=== PATIENT | male | born 1965 | race Hispanic/Latino ===

== ENCOUNTER 2019-12-01 02:59 | Inpatient (IN) | payer SELFPAY ==
[2019-12-01] MEDS ORDERED: Pantoprazole 40 MG VIAL ONE (03:13)
[2019-12-01] MEDS ORDERED: Tranexamic Acid 1,000 MG/10 ML VIAL ONE (03:24)
[2019-12-01] MEDS ORDERED: Midazolam HCl 5 mg/ml Vial ONE (03:26)
[2019-12-01 03:39] LABS: Actual Bicarbonate (HCO3a) 20.3 mEq/L (22-28); Analyzer IN Cardio ER; Base Excess (BEa) -7.9 mEq/L (-2.0 to +3.0); CO2 Tension 56.2 mmHg (35.0-45.0); Calcium, Ionized 0.94 mmol/L (1.12-1.30); Carboxyhemoglobin (COHb) 0.3 gm% (0.0-3.0); Hemoglobin (Hb) 8.3 g/dL (14.0-18.0); O2 Tension (PaO2) 84.3 mmHg (80.0-100.0); Potassium - ABG Lab 3.88 mmol/L (3.70-5.30)
[2019-12-01 03:40] LABS: Puncture Site LBA; pH, Arterial 7.18 (7.35-7.45)
[2019-12-01 03:57] LABS: Band 3 % (5-11); Hemoglobin 7.9 g/dL (14.0-18.0); Lymphocytes 4 % (21-51); MDiff Complete? YES; Mean Corpuscular HGB CONC 32.9 g/dL (32.0-36.0); Mean Corpuscular Hemoglobin 30.2 pg (27.0-31.0); Mean Corpuscular Volume 91.8 fL (78.0-98.0); Mean Platelet Volume 7.1 fL (7.4-10.4); Monocytes 2 % (0-10); Neutrophil 91 % (42-75); Platelet Count 280 thou/uL (130-400); Platelet Morphology Comment Appears Adequate; RBC Distribution Width 15.9 % (11.5-14.5); White Blood Cell (WBC) Count 19.8 thou/uL (4.8-10.8)
[2019-12-01] MEDS ORDERED: cefTRIAXone\\ROCEPHIN 1 GM VIAL ONE (04:00)
[2019-12-01] MEDS ORDERED: Tranexamic Acid 1,000 MG in Sodium Chloride 0.9% 250 ML 250 ML IVPB SCH (04:00)
--- NOTE | 2019-12-01 04:09 | PDOC.FPRHP ---
- History of Present Illness Chief Complaint: ROSC History of Present Illness: This is a 54 yo with a pmh of HTN and heavy alcohol abuse who was at home yesterday evening when he called EMS for HTN. EMS arrived and found his BP to be elevated in addition, he became combative at that time and received ketamine to calm him down. Following this event, he developed respiratory arrest requiring a JACE airway. At this time blood was seen coming from the airway and EMS was unable to oxygenate appropriately. Pt was brought to [facility] where he was intubated. In addition, pt developed cardiac arrest with PEA requiring multiple rounds of Epi and CPR before obtaining ROSC. At this time pt was diagnosed with a GI bleed given Hgb of 7.0 that dropped to 5.5 an hour later. He also received 5L of NS. A VBG was obtained at the outside ER x2 showing mixed metabolic and respiratory acidosis. He was shipped to our ER, intubated. Here, his vital signs remained questionable with a widened pulse pressure and tachycardia. He received an additional unit of blood. Prior to that unit, he had a Hgb of 7.9 Pt received TXA, lactulose, protonix, a unit of blood (for a total of 2u), and rocephin at this facility. He was also found to have a coagulopathy of 2.6, supporting the possibility of alcoholic cirrhosis. I discussed this pt with his next of kin, his brother. His brother states that he called EMS due to his elevate BP. In addition, his brother states that he would want everything done to keep him alive. ED Course: Outside ER: 5L NS 1 unit of blood Ketamine Rocuronium [facility] ER: 1 unit of blood protonix 40 mg TXA 1 g Rocephin 1g Fentanyl 1mcg/kg/hr - Allergies/Adverse Reactions Allergies Allergy/AdvReac Type Severity Reaction Status Date / Time No Allergy Information Allergy Unverified 12/01/19 03:29 Available - History PMHx: HTN, Heavy alcohol abuse PSHx: Unknown FHx: Unknown Social: History of heavy drinking, quit a few months ago - Review of Systems ROS unobtainable: due to endotracheal tube Gastrointestinal: reports: GI bleeding, other - Vital signs BP: 161/92 HR: 109 RR: 20 Tmax: 94.8 Pox: 96% on 70% FIO2 Wt: 100 kg - Physical Exam Constitutional: other (Intubated and sedated) HEENT: PERRLA, conjunctiva clear, MMM, other (Blood on face, swollen eyelids but no obvious bruising) Neck: trachea midline, no JVD Heart: normal S1/S2, no murmurs/rubs/gallops, pulses present (bounding), no edema, other (tachy but regular) Lungs: other (rhonchi diffusely and bilaterally) Abdomen: soft, bowel sounds present, no masses/distention Musculoskeletal: normal structure Neurological: other (unable to assess) Skin: no rash/lesions, capillary refill <2 seconds, no jaundice Heme/Lymphatic: no unusual bruising or bleeding FMR H&P: Results - Labs Result Diagrams: 12/01/19 03:20 Lab results: WBC 19.8 thou/uL (4.8-10.8) H 12/01/19 03:20 Hgb 7.9 g/dL (14.0-18.0) L 12/01/19 03:20 Hct 23.9 % (42.0-52.0) L 12/01/19 03:20 MCV 91.8 fL (78.0-98.0) 12/01/19 03:20 Plt Count 280 thou/uL (130-400) 12/01/19 03:20 Band Neuts % (Manual) 3 % (5-11) L 12/01/19 03:20 ABG pH 7.18 (7.35-7.45) L* 12/01/19 03:21 ABG pCO2 56.2 mmHg (35.0-45.0) H 12/01/19 03:21 ABG pO2 84.3 mmHg (80.0-100.0) 12/01/19 03:21 Lactic Acid 3.6 mmol/L (0.5-2.2) H 12/01/19 03:20 Ammonia 159 umol/L (18-72) H 12/01/19 03:20 - EKG Interpretation EKG: Sinus tachycardia - Radiology Interpretation Chest x-ray Status: image reviewed by me (Humoral head replacement on the right, NG/ET tubes in place. Clear costophrenic borders, diffuse opacities) CT scan - head Status: image reviewed by me (No acute intracranial bleed or mass effect) FMR H&P: A/P - Problem List (1) PEA (Pulseless electrical activity) Current Visit: Yes Status: Acute Code(s): I46.9 - CARDIAC ARREST, CAUSE UNSPECIFIED (2) Signs of return of spontaneous circulation Current Visit: Yes Status: Acute Code(s): HOY0984 - (3) Upper GI bleed Current Visit: Yes Status: Acute Code(s): K92.2 - GASTROINTESTINAL HEMORRHAGE, UNSPECIFIED (4) Metabolic acidosis with respiratory acidosis Current Visit: Yes Status: Acute Code(s): E87.4 - MIXED DISORDER OF ACID- BASE BALANCE (5) Increased ammonia level Current Visit: Yes Status: Acute Code(s): R79.89 - OTHER SPECIFIED ABNORMAL FINDINGS OF BLOOD CHEMISTRY - Plan This is a 54 yo male with a pmh of HTN and heavy alcohol abuse Acute hypoxic respiratory failure -Admit to ICU -Ventilator support -S/P rocephin 1g, starting Unasyn due to aspiration concerns PEA with ROSC -Currently Sinus tachycardia Upper GI bleed with concern for variceal bleeding given alcohol abuse -Hgb 7.0-->5.5-->7.9 (after one unit of blood at [facility]) -Transfusing a second unit of blood at this time -Pt is on protonix BID -S/p TXA -Dr. Tapia plans to evaluate pt in the morning -Strict I&Os Acute blood loss anemia -As above, q6hr H/H Respiratory acidosis with metabolic acidosis -Treating anemia as well as ventilator adjustments to compensate Elevated ammonia level -159, s/p lactulose Coagulopathy -INR 2.6, S/P TXA, will monitor for further/worsening bleeding Presumptive cirrhosis -GI consult -Pending RUQ US and hepatitis labs Lactic acidosis -4.1->3.6 Transaminitis -Shock liver vs Cirrhosis -Pending RUQ US and Hepatitis labs HTN -Unknown if he takes any medications at this time Hx of heavy alcohol abuse -Alcohol level on admission was negative, family reports he stopped months ago Code: Full Prophylaxis: SCDs, Protonix Family: Called Brother and nephew to discuss condition and confirm code status Fluids: LR 50ml/hr Drips: Fentanyl Diet: NPO Disposition: DC in 4-5 days PCP: [facility] Addendum - Attending - Attending Attestation Date/Time: 12/01/19 7713 I personally evaluated the patient and discussed the management with Dr. Montes in the ER at time of admission. I agree with the History, Examination, Assessment and Plan documented above with any addition or exceptions noted below.
[2019-12-01] MEDS ORDERED: fentaNYL Citrate/PF 2,000 MCG in Sodium Chloride 0.9% 60 ML IV SCH (04:30)
[2019-12-01] MEDS ORDERED: Ondansetron PF 4 MG/2 ML Vial IVP PRN (05:33)
[2019-12-01] MEDS ORDERED: Ventilator Sedation Protocol 1 EACH FS ONE (05:33)
[2019-12-01] MEDS ORDERED: DISCONTINUE PREVIOUS NARCOTIC PAIN MEDICATIONS AND BENZODIAZEPINES FS SCH (05:41)
[2019-12-01] MEDS ORDERED: Propofol BOLUS 1,000 MG/100 ML VIAL IV PRN (05:41)
[2019-12-01] MEDS ORDERED: Morphine 2 MG/ML SYRINGE SLOW IVP PRN (05:41)
[2019-12-01] MEDS ORDERED: Fentanyl BOLUS 250 ML IVPB PRN (05:41)
[2019-12-01] MEDS ORDERED: Acetaminophen 650 MG Suppository PR SCH (06:00)
[2019-12-01] MEDS ORDERED: Ampicillin/Sulbactam 1.5 GM in Sodium Chloride 0.9% 100 ML IVPB SCH (06:00)
[2019-12-01 06:10] LABS: HBSAB Concentration 0.97 mIU/mL; HBSAg Index 0.27 S/CO (0-0.99); Hep B Surf AB Non-Reactive (NonReactive); Hep B Surf Ag Non-Reactive S/CO (NonReactive); Hep C IgG Ab Non-Reactive (NonReactive); Hep C Index 0.13 S/CO (0-0.79)
[2019-12-01 06:22] LABS: Actual Bicarbonate (HCO3a) 20.7 mEq/L (22-28); Base Excess (BEa) -2.8 mEq/L (-2.0 to +3.0); CO2 Tension 30.3 mmHg (35.0-45.0); Calcium, Ionized 0.96 mmol/L (1.12-1.30); Carboxyhemoglobin (COHb) 1.3 gm% (0.0-3.0); Hemoglobin (Hb) 7.6 g/dL (14.0-18.0); O2 Tension (PaO2) 129.4 mmHg (80.0-100.0); Potassium - ABG Lab 4.33 mmol/L (3.70-5.30); pH, Arterial 7.45 (7.35-7.45)
[2019-12-01 06:28] LABS: Lactic Acid 3.3 mmol/L (0.5-2.2)
[2019-12-01] MEDS ORDERED: Acetaminophen 650 MG Suppository PR PRN (06:33)
[2019-12-01 06:38] LABS: ALV-art Gradient 260.525 (0-20); Puncture Site RBRACH
--- NOTE | 2019-12-01 06:38 | PDOC.FM ---
- Objective Vital Signs & Weight: Vital Signs (12 hours) Temp Pulse Resp BP 12/01/19 05:33 24 H 12/01/19 05:30 99.0 F 12/01/19 05:29 110 H 166/108 H Weight Weight 76.1 kg Most Recent Monitor Data Heart Rate from ECG 111 NIBP 119/80 NIBP BP-Mean 93 Respiration from ECG 28 SpO2 100 I&O: 11/29/19 11/30/19 12/01/19 06:59 06:59 06:59 Output Total 350 Balance -350 Result Diagrams: 12/01/19 03:20 Dx/Plan (1) Increased ammonia level Code(s): R79.89 - OTHER SPECIFIED ABNORMAL FINDINGS OF BLOOD CHEMISTRY Status : Acute (2) Metabolic acidosis with respiratory acidosis Code(s): E87.4 - MIXED DISORDER OF ACID-BASE BALANCE Status: Acute (3) PEA (Pulseless electrical activity) Code(s): I46.9 - CARDIAC ARREST, CAUSE UNSPECIFIED Status: Acute (4) Signs of return of spontaneous circulation Code(s): XFA2972 - Status: Acute (5) Upper GI bleed Code(s): K92.2 - GASTROINTESTINAL HEMORRHAGE, UNSPECIFIED Status: Acute - Plan Plan: Acute hypoxic respiratory failure -Ventilator support, sedation protocol -Unasyn started for aspiration pna, consider DC - CXR appears fluid overloaded, A-a gradient increased - monitor, potentially consider diuresis if difficult wean PEA with ROSC -Currently Sinus tachycardia Upper GI bleed with concern for variceal bleeding given alcohol abuse -Hgb 7.0-->5.5-->7.9 (after one unit of blood at [facility]) -Transfusing a second unit of blood at this time -Pt is on protonix BID -S/p TXA -Dr. Tapia plans to evaluate pt in the morning -Strict I&Os Acute blood loss anemia -As above, q6hr H/H Respiratory acidosis with metabolic acidosis -Treating anemia as well as ventilator adjustments to compensate Elevated ammonia level -159, s/p lactulose Coagulopathy -INR 2.6, S/P TXA, will monitor for further/worsening bleeding Presumptive cirrhosis -GI consult -Pending RUQ US and hepatitis labs Lactic acidosis -4.1->3.6 Transaminitis -Shock liver vs Cirrhosis -Pending RUQ US and Hepatitis labs HTN -Unknown if he takes any medications at this time Hx of heavy alcohol abuse -Alcohol level on admission was negative, family reports he stopped months ago Code: Full Prophylaxis: SCDs, Protonix Family: Called Brother and nephew to discuss condition and confirm code status Fluids: LR 50ml/hr Drips: Fentanyl Diet: NPO Disposition: DC in 4-5 days PCP: [facility]
[2019-12-01] MEDS: Lactated Ringer's 1,000 ML IV SCH (06:50)
[2019-12-01] MEDS: Propofol 1,000 MG/100 ML VIAL IV PRN ×2 (07:12→16:10)
--- NOTE | 2019-12-01 07:26 | CT ---
PRELIMINARY REPORT/[facility]/EMERGENCY AFTER HOURS PROCEDURE: PROCEDURE: CT Head without Contrast . HISTORY: Altered mental status. TECHNIQUE: Axial images were performed without the administration of IV contrast with or without mult iplanar reformations . COMPARISON: None . FINDINGS: Brain shows no mass, hemorrhage, or acute stroke. Ventricles are normal size for patient's age. Persistent cavum septum pellucida and cavum vergae. Hector-cisterna magna. No acute skull or scalp abnormality. Scattered mild to moderate inflammatory mucosal changes paranasal sinuses. Clear mastoids. NG and endotracheal tube in place. IMPRESSION: No significant abnormality involving the brain. ELECTRONICALLY SIGNED BY: Carter Ahumada MD Dec 01, 2019 4:10:06 AM CDT This report is intended for review by the ordering physician only, in accordance of law. If you recei ve this report in error, please call [facility] at [phone]. FINAL REPORT EMERGENCY AFTER HOURS CT BRAIN WITHOUT CONTRAST: FINDINGS/IMPRESSION: I agree with the findings and impression given in the preliminary report per [facility] physici an. No evidence of acute intracranial abnormality.
--- NOTE | 2019-12-01 08:10 | ULT ---
Exam: Right upper quadrant ultrasound: HISTORY: Cirrhosis COMPARISON: None FINDINGS: Liver: Heterogeneous in appearance. There is an echogenic peripherally located mass in the right hepa tic lobe measuring 3.9 cm in maximal dimensions. This is in a subcapsular location and results in contour abnormality of the liver in this region. A questionable additional echogenic masslike lesion is present, but the borders are difficult to delineate. Findings are worrisome for neoplastic process. Nodular peripheral contour is seen suggesting cirrhosis. Flow within the main portal vein is not able to be visualized. Hepatic arterial Doppler evaluation does demonstrate arterial flow within the hepatic artery. CT scan of the the abdomen is recommended for further evaluation of the he patic lesion and for further evaluation of the portal vein. Gallbladder: Markedly contracted and difficult to evaluate. There is a shadowing echogenic focus in t he region of the gallbladder suggesting gallbladder calculus. Common bile duct: Not visualized. Pancreas: Completely obscured by shadowing from bowel gas. Right kidney: Right kidney demonstrates a normal sonographic appearance. The right kidney measures 1 3.9 cm in length. IVC: The visualized IVC demonstrates a normal sonographic appearance. Small amount of free fluid is seen in the right upper quadrant adjacent to the liver. IMPRESSION: 1. Cirrhotic morphology of the liver with heterogeneity of the hepatic parenchyma. A circumscribed pe ripherally located mass in the right hepatic lobe is seen within additional ill-defined area of heterogeneity which has a masslike appearance, but the margins are difficult to adequately evaluate. Findings are worrisome for neoplastic process. Correlation with alpha-fetoprotein is recommended. CT scan of the abdomen is also recommended. 2. Main portal vein is unable to be detected on this examination. This can also be evaluated on CT ev aluation. 3. Gallbladder is completely contracted with small gallbladder calculus present. Common duct is not v isualized. 4. Small amount of ascites in the right upper quadrant.
[2019-12-01] MEDS: Pantoprazole 40 MG VIAL IVP SCH ×2 (09:19→20:08)
[2019-12-01] MEDS: Sodium Chloride 0.9% (PF) 10 ML VIAL FS PRN (09:19)
--- NOTE | 2019-12-01 09:26 | CON ---
DATE OF CONSULTATION: HISTORY OF PRESENT ILLNESS: Len Sebastian is a 54-year-old gentleman, who is intubated in the vent, sedated, Diprivan and fentanyl. He came from [facility], presented with GI bleed. He was agitated. He was given some ketamine as per the history that I got. He had a cardiac arrest. CPR was initiated. He was intubated and transferred over here. He received 5 L IV fluids, packed cells prior to arrival. No family members are here. He was recently admitted to [facility] in [place]. We will try to get additional information from there. He had a CT done of his brain on arrival, which is negative. PAST MEDICAL HISTORY: As per previous information, pertinent for alcoholic-associated liver disease. No other history obtained at this time. Unknown surgeries. Unknown medication. We are in the process of trying to get information from a different hospital. PHYSICAL EXAMINATION: GENERAL: He is jaundiced. HEENT: Pupils are equal. VITAL SIGNS: Pulse 109, blood pressure 101/68, sats 98%, respirations 18, afebrile. CHEST: Decreased breath sounds. No wheezing. CARDIAC: Normal S1 and S2. No gallops. ABDOMEN: Distended. LABORATORY DATA: His pO2 is 129, pCO2 of 30, pH 7.45, 60%, 450, PEEP of 5. Hemoglobin and hematocrit are now 7 and 23, platelet count is 280. Renal function is normal. AST is 176, ALT 72. ASSESSMENT: Status post cardiopulmonary arrest, alcohol abuse, cirrhosis, hypertension, and encephalopathy. PLAN: Continue supportive care. Input from GI. Agree with present treatment. He is on empiric antibiotics, continue. X-ray is clear. Wean when everything is stable. 45-minute critical time. Job ID: [id number]
[2019-12-01] MEDS ORDERED: Sodium Chloride 0.9% 250 ML 250 ML IVPB SCH (10:30)
[2019-12-01] MEDS: cefTRIAXone\\ROCEPHIN 1 GM in Sodium Chloride 0.9% 100 ML IVPB SCH (10:36)
[2019-12-01 11:04] LABS: Hemoglobin 8.1 g/dL (14.0-18.0); Platelet Count 187 thou/uL (130-400)
[2019-12-01] MEDS: Octreotide Acetate 1,250 MCG in Sodium Chloride 0.9% 250 ML 250 ML IVPB SCH (11:09)
[2019-12-01 11:10] LABS: INR-International Normal Ratio 1.8; PTT 37.6 SEC (22.9-36.1); Prothrombin Time 20.6 SEC (12.0-14.7)
[2019-12-01] MEDS ORDERED: EPINEPHRINE 1 MG/10 ML-NACL IV ONE (11:18)
[2019-12-01] MEDS: Multivitamins, Adult 10 ML, Folic Acid 1 MG, Thiamine HCl 100 MG in Dextrose 5 %-0.45 %... IV SCH (11:21)
[2019-12-01 11:23] LABS: ALT (SGPT) 84 U/L (8-55); AST (SGOT) 199 U/L (5-34); Albumin 2.3 g/dL (3.5-5.0); Alkaline Phosphatase 125 U/L (40-110); Anion Gap 12 mmol/L (10-20); BUN (Urea Nitrogen) 32 mg/dL (8.4-25.7); Bilirubin, Total 1.4 mg/dL (0.2-1.2); Calc. Creatinine Clearance 77 mL/min (70-130); Calcium 6.5 mg/dL (7.8-10.44); Carbon Dioxide 20 mmol/L (22-29); Chloride 113 mmol/L (98-107); Estimated GFR-MDRD 65; Globulin 2.9 g/dL (2.4-3.5); Glucose 110 mg/dL (70-105); Lipase 50 U/L (8-78); Potassium 4.1 mmol/L (3.5-5.1); Protein, Total 5.2 g/dL (6.0-8.3); Sodium 141 mmol/L (136-145)
--- NOTE | 2019-12-01 14:54 | OP ---
DATE OF PROCEDURE: 12/01/2019 PREPROCEDURE DIAGNOSES: 1. Gastrointestinal hemorrhage. 2. Cirrhosis. 3. Questionable history of traumatic intubation, possible esophageal intubation in the field. POSTPROCEDURE DIAGNOSES: 1. Esophageal varices grade 3, three columns, lower esophagus with red aly signs with no stigmata of recent or active bleeding, banded x4. 2. Mild portal gastropathy. No evidence of ulcers or erosions. Retroflexed views showed no evidence of gastric varices. 3. Normal duodenum in the third portion. 4. No active bleeding at this EGD. RECOMMENDATIONS: 1. Stop triaminic acid. 2. Continue octreotide drip. 3. Continue Protonix. 4. Continue banana bag. 5. Continue empiric antibiotics. 6. Transfuse to keep hemoglobin greater than 7, would not transfuse if hemoglobin is over 7 unless he is actively bleeding. 7. Start Xifaxan 550 p.o. b.i.d. via the NG tube. Start lactulose twice a day via the NG tube. 8. Clamp the NG tube. I do not want that to be sucking on his stomach at this time unless he becomes overly distended. No tube feeds at this time. We will follow with you. ANESTHESIA: The patient is intubated in the ICU. He is given a bolus of propofol 20 mcg at a time, four times. The pressure remained stable through the procedure. DESCRIPTION OF PROCEDURE: The patient's family was informed of the risks, benefits, and possible complications of endoscopy including perforation, reaction to medication, and aspiration. Informed consent was obtained. The patient was brought to the endoscopy suite where he was sedated as noted as he was already intubated in the ICU and a bite block was placed inside his orifice. The endoscope was carefully advanced through the bite block into the esophagus, stomach, and second and third portions of duodenum. There was no active bleeding noted. There was no blood noted. I did not see any definitive trauma in the oropharynx. The esophagus showed grade 3 varices, three columns. These were banded x4. After the remainder of the esophagus was evaluated, there was red aly signs, but no active bleeding or thrombin clot seen. The stomach appeared to show portal hypertensive gastropathy with no evidence of gastric varices. Forward and retroflexed views of the duodenum was without ulcers or lesions. Before the banding took place, I went ahead and placed the NG tube back into the stomach. So we had a way to give him lactulose and Xifaxan and we banded with that in place. The scope was removed. The patient tolerated the procedure well. There were no complications. Job ID: [id number]
[2019-12-01 18:22] LABS: Hemoglobin 8.1 g/dL (14.0-18.0)
[2019-12-01] MEDS: Lorazepam 2 MG/ML VIAL SLOW IVP PRN (18:23)
[2019-12-01] MEDS: Rifaximin 550 MG TAB PER TUBE SCH (20:08)
[2019-12-02 00:15] LABS: Hemoglobin 8.4 g/dL (14.0-18.0)
[2019-12-02] MEDS: Lactated Ringer's 1,000 ML IV SCH ×2 (03:10→22:00)
[2019-12-02] MEDS: Propofol 1,000 MG/100 ML VIAL IV PRN ×2 (04:03→16:09)
[2019-12-02 04:31] LABS: #Basophils 0.1 thou/uL (0.0-0.2); #Eosinphils 0.3 thou/uL (0.0-0.7); #Lymphocytes 2.2 thou/uL (1.20-3.40); #Monocytes 0.9 thou/uL (0.11-0.59); #Neutrophils 8.7 thou/uL (1.40-6.50); %Basophils 0.6 % (0.0-1.0); %Eosinophils 2.1 % (0.0-10.0); %Lymphocytes 18.1 % (21.0-51.0); %Monocytes 7.5 % (0.0-10.0); %Neutrophils 71.7 % (42.0-75.0); Hemoglobin 8.3 g/dL (14.0-18.0); Mean Corpuscular HGB CONC 33.5 g/dL (32.0-36.0); Mean Corpuscular Hemoglobin 29.9 pg (27.0-31.0); Mean Corpuscular Volume 89.4 fL (78.0-98.0); Mean Platelet Volume 7.3 fL (7.4-10.4); Platelet Count 187 thou/uL (130-400); RBC Distribution Width 16.7 % (11.5-14.5); Red Blood Cell (RBC) Count 2.77 mill/uL (4.70-6.10); White Blood Cell (WBC) Count 12.2 thou/uL (4.8-10.8)
[2019-12-02 05:01] LABS: ALT (SGPT) 108 U/L (8-55); AST (SGOT) 223 U/L (5-34); Albumin 2.4 g/dL (3.5-5.0); Alkaline Phosphatase 137 U/L (40-110); Anion Gap 11 mmol/L (10-20); BUN (Urea Nitrogen) 38 mg/dL (8.4-25.7); Bilirubin, Total 1.4 mg/dL (0.2-1.2); Calc. Creatinine Clearance 68 mL/min (70-130); Calcium 7.1 mg/dL (7.8-10.44); Carbon Dioxide 20 mmol/L (22-29); Chloride 112 mmol/L (98-107); Estimated GFR-MDRD 54; Globulin 3.1 g/dL (2.4-3.5); Glucose 106 mg/dL (70-105); Magnesium 1.5 mg/dL (1.6-2.6); Phosphorus 3.2 mg/dL (2.3-4.7); Potassium 3.9 mmol/L (3.5-5.1); Protein, Total 5.5 g/dL (6.0-8.3); Sodium 139 mmol/L (136-145)
--- NOTE | 2019-12-02 06:59 | PDOC.FM ---
- Subjective Subjective: pt intubated and sedated, no events overnight. egd yesterday with variceal banding - Objective Vital Signs & Weight: Vital Signs (12 hours) Temp Pulse Resp BP Pulse Ox 12/02/19 06:00 18 12/02/19 04:00 99.0 F 21 H 12/02/19 02:35 94 123/82 12/02/19 02:00 23 H 12/02/19 00:00 99.8 F H 21 H 12/01/19 23:51 94 12/01/19 22:00 21 H 12/01/19 20:00 99.2 F 23 H 97 Weight Admit Weight 75.75 kg Weight 78.4 kg Most Recent Monitor Data Heart Rate from ECG 96 NIBP 113/71 NIBP BP-Mean 85 Respiration from ECG 18 SpO2 98 I&O: 11/30/19 12/01/19 12/02/19 06:59 06:59 06:59 Intake Total 4.5 3213.6 Output Total 350 1071 Balance -345.5 2142.6 Result Diagrams: 12/02/19 04:15 12/02/19 04:15 Phys Exam - Physical Examination Constitutional: NAD HEENT: moist MMs Neck: no JVD Respiratory: clear to auscultation bilateral Cardiovascular: no significant murmur Gastrointestinal: soft Musculoskeletal: pulses present, edema present Psychiatric: normal affect Skin: no rash Dx/Plan (1) Increased ammonia level Code(s): R79.89 - OTHER SPECIFIED ABNORMAL FINDINGS OF BLOOD CHEMISTRY Status : Acute (2) Metabolic acidosis with respiratory acidosis Code(s): E87.4 - MIXED DISORDER OF ACID-BASE BALANCE Status: Acute (3) PEA (Pulseless electrical activity) Code(s): I46.9 - CARDIAC ARREST, CAUSE UNSPECIFIED Status: Acute (4) Signs of return of spontaneous circulation Code(s): OMG0208 - Status: Acute (5) Upper GI bleed Code(s): K92.2 - GASTROINTESTINAL HEMORRHAGE, UNSPECIFIED Status: Acute - Plan Plan: Acute hypoxic respiratory failure - intubated 11/30, continue sedation protocol, npo for GI bleed - maintenance fluids Upper GI bleed - s/p 1u of blood, EGD revealing varices, no visualized active bleeding - protonix, octreotide, ceftriaxone - hb/vss stable Acute blood loss anemia -As above Respiratory acidosis with metabolic acidosis, resolved Elevated ammonia level -lactulose TID Coagulopathy -INR 2.6, S/P TXA, will monitor for further/worsening bleeding Liver mass - concerning for malignancy - will need further imaging, MRI once extubated Presumptive cirrhosis - RUQ reveals cirrhosis and mass concerning for neoplastic process, elevated AFP - GI consulted, appreciate recs Transaminitis - see above HTN -monitor Hx of heavy alcohol abuse -monitor for withdrawal symptoms Disposition: monitor for further bleeding, continue work up Addendum - Attending - Attending Attestation Date/Time: 12/02/19 1007 I personally evaluated the patient and discussed the management with Dr. Law. I agree with the History, Examination, Assessment and Plan documented above with any addition or exceptions noted below. Patient continues on ventilator. H/H stable. Trend and transfuse as needed. Continue Protonix, Octreotide and Rocephin for SBP ppx. Has liver mass with highly elevated AFP, will need imaging once more stable given likelihood of malignancy.
[2019-12-02 07:25] LABS: Actual Bicarbonate (HCO3a) 21.1 mEq/L (22-28); Base Excess (BEa) -2.3 mEq/L (-2.0 to +3.0); CO2 Tension 30.5 mmHg (35.0-45.0); Calcium, Ionized 1.07 mmol/L (1.12-1.30); Carboxyhemoglobin (COHb) 0.8 gm% (0.0-3.0); Hemoglobin (Hb) 8.7 g/dL (14.0-18.0); O2 Tension (PaO2) 75.2 mmHg (80.0-100.0); Potassium - ABG Lab 3.74 mmol/L (3.70-5.30); pH, Arterial 7.46 (7.35-7.45)
[2019-12-02 07:26] LABS: Puncture Site RRA
[2019-12-02 07:27] LABS: ALV-art Gradient 171.875 (0-20)
[2019-12-02] MEDS: Rifaximin 550 MG TAB PER TUBE SCH ×2 (09:00→21:09)
[2019-12-02] MEDS: Pantoprazole 40 MG VIAL IVP SCH ×2 (09:01→21:09)
[2019-12-02] MEDS: Octreotide Acetate 1,250 MCG in Sodium Chloride 0.9% 250 ML 250 ML IVPB SCH (10:24)
[2019-12-02] MEDS: cefTRIAXone\\ROCEPHIN 1 GM in Sodium Chloride 0.9% 100 ML IVPB SCH (10:25)
[2019-12-02] MEDS: Multivitamins, Adult 10 ML, Folic Acid 1 MG, Thiamine HCl 100 MG in Dextrose 5 %-0.45 %... IV SCH (12:07)
--- NOTE | 2019-12-02 12:16 | CON ---
DATE OF CONSULTATION: REQUESTING PHYSICIAN: Dr. Cameron Lopez. HISTORY OF PRESENT ILLNESS: Mr. Sebastian is a 54-year-old gentleman, who was transferred here last night with upper GI hemorrhage. Apparently, he had come from [facility], where he presented with hematemesis and hemoglobin around 5, and at one time point in time, he became so hypotensive. He was started on CPR for PEA. He apparently received 4 L of saline resuscitation unit of blood. He was found to have melena on exam and about 250 mL of bright red blood with placement of NG tube. He was intubated for airway protection and transferred to our hospital. Apparently, he has history of alcohol abuse, but the nurses report, the family states he stopped drinking a few months ago. There is not much otherwise known historically when he came in. Apparently review of the residents notes, that when the initial call for EMS went out for hypertension, he was found by EMS to be confused and combative, he was given ketamine and he developed a respiratory arrest, that was when he was found to have blood coming from the airways and they were unable to oxygenate him, so he was brought to [facility], where was re-intubated. At that time, he developed a cardiac arrest. He had multiple rounds of epi, CPR. It is unclear how much CPR he had. Initial hemoglobin was 7 that dropped to 5.5. It is unclear if that occurred before or after the 5 L of resuscitation with saline. Here, he has had no further signs of bleeding. He had melena on rectal exam. He had a hemoglobin of 7.9 in the emergency room here and he was given tranexamic acid and then started on a drip. It seems now he has had 2 units of blood in total. His last hemoglobin was 7.9 before the last unit was given. In the emergency room, he also received lactulose. INR 2.6. Platelet count was normal. The family practice residents talked with the family and they wanted to keep him as a full code. It is unclear how much blood he has received in blood bank, reports 1 unit has been issued here. It seems that, that unit just finished. The admission note from the resident's notes, he received a unit in our ER and a unit in [facility]. ALLERGIES: UNKNOWN. PAST MEDICAL HISTORY: Hypertension, heavy alcohol abuse. PAST SURGICAL HISTORY: Unknown. FAMILY HISTORY: Unknown. SOCIAL HISTORY: Heavy drinking in the past. REVIEW OF SYSTEMS: Unable to endotracheal tube present. PHYSICAL EXAMINATION: VITAL SIGNS: Pulse 106, blood pressure 119/73, respiration 18. GENERAL: He is intubated. He does move non-purposefully all extremities. HEENT: Nonicteric. Oropharynx is notable for ET tube in place. NECK: Supple. LUNGS: Clear. HEART: Regular rate and rhythm without clicks or murmurs. ABDOMEN: Protuberant, but questionable for shifting dullness or fluid wave. There is no evidence of hepatosplenomegaly. EXTREMITIES: Reveal no clubbing, cyanosis, or edema. SKIN: Notable for spider angioma on the chest. LABORATORY DATA: Midnight last night, he had a sodium of 137, potassium 4.3, BUN and creatinine of 27 and 0.74, glucose 121, calcium 7.2, bilirubin 1.1, AST 176, ALT 72, alkaline phosphatase 134. Ammonia is 159 at 3 a.m. Albumin is 2.8, protein was 6.1. Lactic acid was 4.1 at midnight last night, 3.6 at 3 a.m. BNP was 53. Tox screen was negative for alcohol, acetaminophen, and salicylates. Urine drug screen was not obtained. Blood gas this morning, pH 7.45, CO2 of 30, O2 of 129. INR is 2.7 at 1 a.m. White count was 12,000 at midnight, it is 19,000 presently was 7.9 at 3 a.m. Platelet count was 280. Hepatitis A, B, and C serologies on 12/01/2019 were negative. IMAGING: Abdominal ultrasound, cirrhosis, there was a mass in the liver concerning for a neoplastic process. Further imaging will need to be obtained per Radiology. Main portal vein is not able to be detected. Gallbladder is contracted. Small amount of ascites in right upper quadrant. ASSESSMENT: 1. Acute gastrointestinal hemorrhage. Very odd history in that he was being intubated for being disoriented and confused after being given sedatives by EMS and then blood came out of the ET tube, and apparently he had to be reintubated at [facility] and then he had some blood from an NG tube. It is unclear what his baseline hemoglobin was before, that is not available in the [facility] system. Apparently, he has been at [facility] in the past and we are trying to get some records from there presently. It is unclear if this bleeding was due to trauma from the intubation or if he had something going on before that. He is cirrhotic, but has a platelet count of over 200,000, so varices are less likely. He became very hypotensive at one point in time, went to PEA, but is now seemingly stable. Hemoglobin is pending and he is on the Protonix q.12. He has been started on octreotide drip and he is finishing a TXA drip started in the emergency room. Differential diagnosis includes variceal bleed, trauma from inadvertent esophageal intubation or history of ulcer disease or Anita-Fontana tear. He is intubated now and needs an endoscopy to stratify risk, medications and treat bleeding site if applicable as he almost with this episode. This is not a procedure that can be deferred and is an emergency. It will have impact on his management and possibly his life in the next 24 to 48 hours. 2. Cirrhosis, seemingly from alcohol abuse. He does not have hepatitis B or C. The family reports he stopped drinking in the past few months. However, his AST and ALT are still elevated alcoholic liver disease. Alcohol level was negative on admission. He has been appropriately started on antibiotics for GI bleed and cirrhotic. An ultrasound shows no significant ascites to be tapped. He has not been started on a banana bag, which needs to be done. 3. Questionable mass in the liver, on ultrasound. This will be evaluated further after he is resuscitated. IV contrast now is contraindicated. RECOMMENDATIONS: 1. Continue PPI q.12 hours. 2. Urgent endoscopy today while intubated in the ICU at bedside. 3. Continue antibiotics for GI bleed and cirrhotic. 4. Check alpha-fetoprotein. 5. CT scan with IV contrast in 2 to 3 days when he is more hemodynamically stable to evaluate the mass seen in the liver on ultrasound. 6. Banana bag daily. 7. There is not really any data on tranexamic acid for GI bleeding. There is currently an ongoing double-blind trial, which has not resulted. The previous studies that have been done there are some statistical studies that show possibly an improvement in risk of with massive GI hemorrhage, when urgent upper endoscopy and IV PPIs are used, the advantage of TXA is not shown, but I agree with the ER's initial use of this in light of his presentation. 8. We would keep two large-bore IVs at all time. 9. We would keep blood available. We will follow along with you. I have discussed this with the patient's nurse. The patient is intubated. His family who are here speak Armenian and this will be discussed with them with a livestock broker. Job ID: [id number]
--- NOTE | 2019-12-02 13:52 | PRG ---
DATE OF SERVICE: 12/02/2019 SUBJECTIVE: Mr. Sebastian remains intubated and he is receiving sedation with both propofol and fentanyl. He is on octreotide and has not had any further active bleeding. With a sedation holiday, the patient is somewhat more tachypneic and tachycardic and restless, but does not awaken to the point of following commands. PHYSICAL EXAMINATION: VITAL SIGNS: Blood pressure 116/68, heart rate 92, respirations 18, saturation 97% on ventilator with FiO2 of 40. He is assisting the ventilator. He does have a slight cough or diaphragmatic spasm associated with expiration on a fairly consistent basis. His NG tube is without active bleeding. NECK: Shows no adenopathy or JVD. LUNGS: Grossly clear. I do not hear any wheezing. HEART: Regular rate and rhythm. ABDOMEN: Soft. There is no organomegaly. I do not elicit hepatosplenomegaly. There is no guarding or rebound. There is no palpable mass. EXTREMITIES: There is no edema. LABORATORY DATA: White count of 12,200, hemoglobin is 8.3, platelet count 187, 000. Pro-time last evening was 20.6 seconds with INR of 1.8. It has not been repeated. Blood gas today includes pH 7.46, CO2 of 35, PO2 of 75, bicarbonate 21. Electrolytes include sodium 139, potassium 3.7, chloride 114, BUN 38, creatinine 1.37. Liver tests are elevated including AST of 223, ALT of 108, alkaline phosphatase of 137. His ammonia level was 159 on admission, it is now stable at about 80. AFP is over 10,000 IMPRESSION: 1. Altered mental status secondary to hepatic encephalopathy secondary to end- stage alcoholic liver disease with coagulopathy. 2. Gastrointestinal bleed, status post endoscopy with banding. His INR remains elevated at 1.8. 3. Respiratory failure secondary to altered mental status. He is not responding even with drug holiday at this time. 4. Liver mass with elevated AFP is highly suggestive of hepatocellular carcinoma PLAN: Continue ventilatory support. I have reduced his sedation by 50%. We will see if there is a gradual clearing over time. He remains on lactulose and supportive therapy regarding his encephalopathy. At this point, he is not a candidate for extubation. I have not seen any family today. His prognosis is extremely poor. Job ID: [id number] [facility]
--- NOTE | 2019-12-02 16:09 | PRG ---
DATE OF SERVICE: 12/02/2019 SUBJECTIVE: Mr. Sebastian has had no bleeding overnight. The nurses report even with taking sedation off, he is nonresponsive. OBJECTIVE: VITAL SIGNS: Pulse 104, blood pressure 139/95. In's and out's 3238 and 1071 mL. He has had 871 mL of urine output as of 7 this morning, 200 so far today. GASTROINTESTINAL: He has had no bowel movements yet per the nurse. GENERAL: He remains intubated. NECK: Supple. LUNGS: Clear. ABDOMEN: Protuberant, but nontender. There is no rebound. There is no guarding. HEENT: Nonicteric. EXTREMITIES: Trace edema. LABORATORY STUDIES: Sodium 139, potassium 3.9, BUN and creatinine 38 and 1.37, calcium 7.1, magnesium 1.5, bilirubin 1.4, AST 223, ALT 108, alkaline phosphatase 137, ammonia is 81. AFP was 10,148. Hepatitis A, B, and C serology on admission were negative. PH 7.46 today. INR is 1.8 yesterday. White count 12.2; hemoglobin 8.3, stable; platelet count 187. ASSESSMENT: 1. Cirrhosis, likely due to alcohol abuse. Negative hepatitis A, B, and C. 2. The patient had a cardiac arrest with pulseless electrical activity. It is unclear if this was related to sedation that was given or whether it was related to bleeding. There were some reports of hematemesis or blood in the NG tube after intubation, it was only about 200 mL. He had no overt bleeding at the time of endoscopy, but there was some varices with high-risk stigmata that were banded however. 3. Altered mental status. Some of this is hepatic encephalopathy, some of this may be related to sedation he has already received, and some of this may be related to some type of anoxic injury when he had CPR at the outside facility prior to that arrival. 4. AFP is 10,000. He does have hepatocellular carcinoma. This is diagnostic of it. I suspect the mass that is seen on the ultrasound is much bigger and is not fully visualized. 5. Respiratory failure. RECOMMENDATIONS: 1. Continue octreotide. 2. Continue lactulose and Xifaxan. 3. He is not presently a candidate for extubation. 4. He is not presently a candidate to get a CAT scan or MRI of his liver. 5. I have called the family today and talked with one family member who speaks [place]. He has a nephew who is 30 years old. I have outlined to him the multiple problems he faces, the course he has undergone, and issues regarding DNR status. I have recommended that the patient be made DNR status, but continue aggressive treatment at this time and see if we get him extubated and he is going to talk to the family about that and get back to me or the nurse later today. Overall, I spent 45 minutes in conversation with nurse, ICU physician, and family in addition to evaluation and management of above. Job ID: [id number]
[2019-12-03 00:56] LABS: Bacteria/HPF None Seen HPF (None Seen); Bilirubin Negative (Negative); Blood, Urine 1+ (Negative); Clarity Clear (Clear); Glucose, Urine (Dipstick) Normal (Negative); Leukocyte Negative Leu/uL (Negative); Nitrite Negative (Negative); Protein, Urine (Dipstick) Negative (Neg-Trace); Squamous Epithelial 0-3 HPF (0-3); Urine Culture Reflex No No; Urobilinogen Normal mg/dL (Less than 2); WBC/HPF 0-3 HPF (0-3)
[2019-12-03 01:42] LABS: Lactic Acid 1.7 mmol/L (0.5-2.2)
[2019-12-03] MEDS: Cefepime 2 GM in Sodium Chloride 0.9% 100 ML IVPB SCH ×2 (02:10→13:40)
[2019-12-03 04:47] LABS: #Basophils 0.1 thou/uL (0.0-0.2); #Eosinphils 0.1 thou/uL (0.0-0.7); #Lymphocytes 1.3 thou/uL (1.20-3.40); #Monocytes 0.9 thou/uL (0.11-0.59); #Neutrophils 9.1 thou/uL (1.40-6.50); %Basophils 0.7 % (0.0-1.0); %Eosinophils 0.9 % (0.0-10.0); %Lymphocytes 11.3 % (21.0-51.0); %Monocytes 8.2 % (0.0-10.0); Hemoglobin 8.9 g/dL (14.0-18.0); Mean Corpuscular HGB CONC 32.4 g/dL (32.0-36.0); Mean Corpuscular Hemoglobin 29.4 pg (27.0-31.0); Mean Corpuscular Volume 90.9 fL (78.0-98.0); Mean Platelet Volume 7.1 fL (7.4-10.4); Platelet Count 200 thou/uL (130-400); RBC Distribution Width 17.3 % (11.5-14.5); Red Blood Cell (RBC) Count 3.03 mill/uL (4.70-6.10); White Blood Cell (WBC) Count 11.6 thou/uL (4.8-10.8)
[2019-12-03 05:05] LABS: INR-International Normal Ratio 1.4; PTT 32.9 SEC (22.9-36.1)
[2019-12-03 05:10] LABS: ALT (SGPT) 121 U/L (8-55); AST (SGOT) 214 U/L (5-34); Albumin 2.6 g/dL (3.5-5.0); Alkaline Phosphatase 151 U/L (40-110); Anion Gap 12 mmol/L (10-20); BUN (Urea Nitrogen) 32 mg/dL (8.4-25.7); Calc. Creatinine Clearance 72 mL/min (70-130); Calcium 7.2 mg/dL (7.8-10.44); Carbon Dioxide 18 mmol/L (22-29); Chloride 114 mmol/L (98-107); Estimated GFR-MDRD 58; Globulin 3.2 g/dL (2.4-3.5); Glucose 113 mg/dL (70-105); Magnesium 1.6 mg/dL (1.6-2.6); Phosphorus 3.3 mg/dL (2.3-4.7); Potassium 3.9 mmol/L (3.5-5.1); Protein, Total 5.8 g/dL (6.0-8.3); Sodium 140 mmol/L (136-145)
[2019-12-03] MEDS: Propofol 1,000 MG/100 ML VIAL IV PRN ×2 (05:10→17:57)
--- NOTE | 2019-12-03 05:52 | PDOC.BPN ---
- Brief Progress Note Called about fever in patient to 101.2. Pt with risk factors of aspiration, currently on ventilator, and ascites. Pt was on rocephin for SBP ppx in setting of GI bleed. Ordered CXR that showed RLL infiltrate. Ordered blood cultures, procal, and lactic acid Adjusted abx to vanc and cefepime to cover anaerobes and MRSA.
--- NOTE | 2019-12-03 07:05 | PDOC.FM ---
- Subjective Subjective: pt intubated and sedated, non purposeful movements, over breathing vent - Objective Vital Signs & Weight: Vital Signs (12 hours) Temp Pulse Resp BP Pulse Ox 12/03/19 06:00 22 H 12/03/19 04:00 100.2 F H 23 H 12/03/19 02:21 107 H 162/102 H 12/03/19 02:00 19 12/03/19 00:00 101.2 F H 16 12/02/19 22:17 126 H 153/93 H 12/02/19 22:00 22 H 12/02/19 20:00 100.2 F H 23 H 98 Weight Admit Weight 75.75 kg Weight 80.5 kg Most Recent Monitor Data Heart Rate from ECG 101 NIBP 167/111 NIBP BP-Mean 129 Respiration from ECG 23 SpO2 100 I&O: 12/01/19 12/02/19 12/03/19 06:59 06:59 06:59 Intake Total 4.5 3238.5 3000.6 Output Total 350 1071 1390 Balance -345.5 2167.5 1610.6 Result Diagrams: 12/03/19 04:34 12/03/19 04:34 Phys Exam - Physical Examination Constitutional: NAD HEENT: moist MMs diffuse ronchi Cardiovascular: no significant murmur Gastrointestinal: soft Musculoskeletal: no edema Neurological: moves all 4 limbs Skin: no rash, normal turgor Dx/Plan (1) Increased ammonia level Code(s): R79.89 - OTHER SPECIFIED ABNORMAL FINDINGS OF BLOOD CHEMISTRY Status : Acute (2) Metabolic acidosis with respiratory acidosis Code(s): E87.4 - MIXED DISORDER OF ACID-BASE BALANCE Status: Acute (3) PEA (Pulseless electrical activity) Code(s): I46.9 - CARDIAC ARREST, CAUSE UNSPECIFIED Status: Acute (4) Signs of return of spontaneous circulation Code(s): OZU0551 - Status: Acute (5) Upper GI bleed Code(s): K92.2 - GASTROINTESTINAL HEMORRHAGE, UNSPECIFIED Status: Acute - Plan Plan: Acute hypoxic respiratory failure, concomitant aspiration pnuemonitis vs VAP - intubated 11/30, continue sedation protocol, npo for GI bleed - reported fever to 101.2 on 12/02, doc 100.2 - cxr reveals RLL opacity, procal elevated, Cefepime + Vanc began Upper GI bleed - s/p 1u of blood, EGD revealing varices, no visualized active bleeding - protonix + octreotide - hb/vss stable Acute blood loss anemia -As above Respiratory acidosis with metabolic acidosis, resolved Elevated ammonia level -lactulose TID Coagulopathy -INR 2.6, S/P TXA, will monitor for further/worsening bleeding Liver mass, HCC - US reveals mass, Tumor AFP>10k - will need further imaging, MRI once extubated Presumptive cirrhosis - RUQ reveals cirrhosis and mass concerning for neoplastic process, elevated AFP - GI consulted, appreciate recs Transaminitis - see above HTN -monitor Hx of heavy alcohol abuse -monitor for withdrawal symptoms Disposition: continue ventilatory support, cover for vap and monitor Addendum - Attending - Attending Attestation Date/Time: 12/03/19 [id number] I personally evaluated the patient and discussed the management with Dr. Law. I agree with the History, Examination, Assessment and Plan documented above with any addition or exceptions noted below. Patient with fever overnight, expanded abx coverage and cultures obtained. H/H stable. GI on board. Needs good family discussion about prognosis given his liklihood for malignancy in setting of cirrhosis.
[2019-12-03 07:42] LABS: Actual Bicarbonate (HCO3a) 19.2 mEq/L (22-28); Base Excess (BEa) -3.8 mEq/L (-2.0 to +3.0); Carboxyhemoglobin (COHb) 0.6 gm% (0.0-3.0); Hemoglobin (Hb) 10.6 g/dL (14.0-18.0); O2 Tension (PaO2) 105.1 mmHg (80.0-100.0); Potassium - ABG Lab 3.66 mmol/L (3.70-5.30); pH, Arterial 7.45 (7.35-7.45)
[2019-12-03 07:45] LABS: Puncture Site RRA
--- NOTE | 2019-12-03 08:09 | RAD ---
PORTABLE CHEST: DATE: 12/03/2019. PROVIDED CLINICAL HISTORY: Fever. FINDINGS: The lungs are hypoinflated. There is parenchymal opacity at the medial right lung base. The left roddy ng appears grossly clear. Heart size appears normal. ET tube is present, the tip of which overlies the expected location of thoracic inlet. Enteric catheter is noted, the tip of which is not visualiz ed but is below the diaphragm. There is no evidence for pneumothorax. IMPRESSION: Hypoinflated exam with nonspecific medial right lung base parenchymal opacity. Correlate with concer ns for pneumonia. Followup recommended. POS: SKYLA
[2019-12-03] MEDS: Pantoprazole 40 MG VIAL IVP SCH ×2 (08:15→20:12)
[2019-12-03] MEDS: Rifaximin 550 MG TAB PER TUBE SCH ×2 (08:30→20:12)
[2019-12-03] MEDS ORDERED: Vancomycin HCl 1.25 GM in Sodium Chloride 0.9% 250 ML 300 ML IVPB SCH (09:00)
[2019-12-03] MEDS: Lorazepam 2 MG/ML VIAL SLOW IVP PRN (10:16)
[2019-12-03] MEDS: Multivitamins, Adult 10 ML, Folic Acid 1 MG, Thiamine HCl 100 MG in Dextrose 5 %-0.45 %... IV SCH (11:50)
--- NOTE | 2019-12-03 14:05 | PRG ---
DATE OF SERVICE: 12/03/2019 SUBJECTIVE: There has been no significant change in his status. He has not had significant GI bleeding. Unfortunately, he has not shown any evidence of neurologic recovery and remains at best, minimally responsive to deep pain. Plan today per Gastroenterology is to discontinue the octreotide. PHYSICAL EXAMINATION: VITAL SIGNS: Blood pressure 139/85, heart rate 108. He remains on the ventilator, FiO2 of 30%. He is mildly sedated. NECK: He has no adenopathy or JVD. HEENT: He has no scleral icterus. LUNGS: Show rhonchi greater on the right than on the left. There is no wheezing. HEART: Regular rate and rhythm. ABDOMEN: Distended, soft. No palpable mass felt. Bowel sounds are normal. EXTREMITIES: There is 1+ edema. LABORATORY DATA: White count 11,600, hemoglobin is 8.9, platelet count 200,000. PT 17 seconds with INR of 1.4. Blood gas includes pH 7.45, CO2 of 28, PO2 of 105, bicarbonate of 19 with a rate of 10. Chemistry today includes sodium 140, potassium 3.9, chloride 104, CO2 is 18, BUN 32, creatinine 1.3. Liver tests remain elevated in the same range they have been previously. IMPRESSION: Altered mental status, initially felt exclusively related to hepatic encephalopathy. Unfortunately, his ammonia level has not improved with ongoing Kayexalate therapy. Additionally, he is now found to have a mass within the liver and a very high AFP consistent with hepatocellular carcinoma. There is no evidence of ongoing active GI bleeding. PLAN: Ventilatory support is continued. He remains on lactulose in attempt to control his hepatic encephalopathy. Conversations were initiated yesterday with family regarding his hepatocellular carcinoma and they have been encouraged to strongly consider DNR status. No other changes anticipated at this time. I will reduce his ventilator rate a bit since we are over ventilating him at this time. Job ID: [id number]
--- NOTE | 2019-12-03 17:21 | CON ---
DATE OF CONSULTATION: 12/03/2019 HISTORY OF PRESENT ILLNESS: Mr. Sebastian continues to have altered status. He will shake his head and fight the ventilator when his propofol is held. He has had no further bleeding. He has had multiple bowel movements with lactulose. He had some fever to 101.2 early this morning and blood cultures have been drawn. He had a chest x-ray, which showed probable pneumonia and his antibiotics have been extended. MEDICATIONS: Presently, 1. Cefepime. 2. Fentanyl drip. 3. LR at 50. 4. Lactulose 30 b.i.d. 5. Ativan p.r.n., last dose today. 6. Morphine p.r.n. 7. Banana bag daily. 8. Zofran. 9. Protonix 40 IV q.12 hours. 10. Diprivan drip. 11. Rifaximin b.i.d. 12. Vancomycin. 13. Octreotide. 14. Ceftriaxone was stopped. PHYSICAL EXAMINATION: GENERAL: He is mildly icteric. He is nonresponsive. LUNGS: Clear. ABDOMEN: Soft and nontender. NG tube is in place. There is no hepatosplenomegaly. EXTREMITIES: Reveal trace edema. LABORATORY DATA: Hepatitis A, B, and C negative. White count 11.6, hemoglobin 8.9, platelet count 200. INR 1.4. BUN and creatinine are 32 and 1.29. Bilirubin is 2. AST 214, ALT 121, alkaline phosphatase is 151. Ammonia 75. ASSESSMENT: 1. Hepatoma with an AFP of over 10,000. This is likely a non-curable hepatoma. Further imaging would be done at a later date, but with the AFP that high, this is a very poor prognosis. 2. Severe encephalopathy. His ammonia is starting to come down. He is starting to have good bowel movements. However, he continues to be on benzodiazepines and fentanyl. My recommendation would be to stop these and increase the propofol. He is completely sedated. Propofol can be used for delirium tremens, which he should be out of by this time. He has been in a hospital for over 48 hours and a negative drug screen on admission at 1 a.m. on 11/30. Otherwise, we are not going to really know of his mental status due to residual drugs hanging around and the patient became metabolizing with the cirrhotic liver. 3. Status post cardiopulmonary resuscitation. We cannot rule out the possibility of anoxic brain injury either. 4. Gastrointestinal bleed. It is unclear what the source of this was, either some varices with stigmata or high risk for bleeding, but no active bleeding or stigmata. He did show recent bleeding. These were banded. There is a history of traumatic intubation and possibly an esophageal intubation, but it is unclear from those records this was secondhand from the residents. There was no evidence of trauma in the esophagus. 5. Fever. He is being started on medicines for pneumonia. I would recommend covering for an aspiration pneumonia as well. He is already on antibiotics for possible spontaneous bacterial peritonitis. RECOMMENDATIONS: We will go ahead and wean off the octreotide today. I have talked to the nurses about stopping benzos and narcotics, and increasing the fentanyl. We would continue the banana bag. Continue to monitor his labs. I did discuss with the patient's family yesterday's poor prognosis. I would strongly recommend considering Palliative Care consult. The patient should be do not resuscitate, which I have advised the family of. I will defer further conversations to primary service. Job ID: [id number]
[2019-12-03] MEDS: Lactated Ringer's 1,000 ML IV SCH (18:01)
[2019-12-03] MEDS: Sodium Chloride 0.9% (PF) 10 ML VIAL FS PRN (20:12)
[2019-12-04] MEDS: Propofol 1,000 MG/100 ML VIAL IV PRN ×2 (02:04→12:32)
[2019-12-04] MEDS: Cefepime 2 GM in Sodium Chloride 0.9% 100 ML IVPB SCH ×2 (02:05→13:25)
[2019-12-04] MEDS: Vancomycin 1.5 GRAM/300 ML BAG 1.5 GM in Premix Bag 1 BAG IVPB SCH (02:07)
[2019-12-04 04:57] LABS: ALT (SGPT) 95 U/L (8-55); AST (SGOT) 141 U/L (5-34); Albumin 2.4 g/dL (3.5-5.0); Alkaline Phosphatase 133 U/L (40-110); Anion Gap 11 mmol/L (10-20); BUN (Urea Nitrogen) 24 mg/dL (8.4-25.7); Bilirubin, Total 2.2 mg/dL (0.2-1.2); Calc. Creatinine Clearance 83 mL/min (70-130); Calcium 7.6 mg/dL (7.8-10.44); Carbon Dioxide 20 mmol/L (22-29); Chloride 113 mmol/L (98-107); Estimated GFR-MDRD 66; Globulin 3.4 g/dL (2.4-3.5); Glucose 109 mg/dL (70-105); Potassium 3.6 mmol/L (3.5-5.1); Protein, Total 5.8 g/dL (6.0-8.3); Sodium 140 mmol/L (136-145)
[2019-12-04 05:16] LABS: Band 3 % (5-11); Eosinophils 2 % (0-10); Hemoglobin 8.2 g/dL (14.0-18.0); Hypochromia SLIGHT = 6-15 cells (100X) (0-5/hpf); Lymphocytes 9 % (21-51); MDiff Complete? YES; Mean Corpuscular HGB CONC 33.6 g/dL (32.0-36.0); Mean Corpuscular Hemoglobin 30.2 pg (27.0-31.0); Mean Corpuscular Volume 89.7 fL (78.0-98.0); Mean Platelet Volume 7.6 fL (7.4-10.4); Monocytes 8 % (0-10); Neutrophil 78 % (42-75); Platelet Count 150 thou/uL (130-400); Platelet Morphology Comment Appears Adequate; RBC Distribution Width 16.7 % (11.5-14.5); White Blood Cell (WBC) Count 9.2 thou/uL (4.8-10.8)
--- NOTE | 2019-12-04 05:53 | PDOC.FM ---
- Subjective Subjective: NAEO. Octreotide discontinued & abx transitioned to cefepime & vanc. Remains intubated & sedated with minimal response, even to painful stimuli. - Objective MAR Reviewed: Yes Vital Signs & Weight: Vital Signs (12 hours) Temp Pulse Resp BP Pulse Ox 12/04/19 04:00 99.4 F 19 12/04/19 02:09 86 151/91 H 12/04/19 02:00 20 12/04/19 00:00 98.9 F 19 12/03/19 22:00 17 12/03/19 21:51 95 136/86 12/03/19 20:00 99.5 F 17 100 12/03/19 18:31 102 H 133/90 12/03/19 18:00 22 H Weight Admit Weight 75.75 kg Weight 80.5 kg Most Recent Monitor Data Heart Rate from ECG 85 NIBP 142/97 NIBP BP-Mean 112 Respiration from ECG 33 SpO2 97 I&O: 12/02/19 12/03/19 12/04/19 06:59 06:59 06:59 Intake Total 3238.5 3000.6 3154.9 Output Total 1071 1390 1485 Balance 2167.5 1610.6 1669.9 Result Diagrams: 12/04/19 04:00 12/04/19 04:00 Phys Exam - Physical Examination Constitutional: NAD HEENT: moist MMs Respiratory: no wheezing, no rales, no rhonchi, clear to auscultation bilateral Cardiovascular: RRR, no significant murmur Gastrointestinal: positive bowel sounds distension noted Musculoskeletal: pulses present Neurological: moves all 4 limbs withdrawal to pain in LLE but not in the right Skin: no rash, normal turgor, cap refill <2 seconds Dx/Plan (1) Hepatocellular carcinoma Code(s): C22.0 - LIVER CELL CARCINOMA Status: Suspected (2) Pneumonia Code(s): J18.9 - PNEUMONIA, UNSPECIFIED ORGANISM Status: Acute (3) HTN (hypertension) Code(s): I10 - ESSENTIAL (PRIMARY) HYPERTENSION Status: Chronic (4) Alcohol abuse Code(s): F10.10 - ALCOHOL ABUSE, UNCOMPLICATED Status: Chronic (5) Increased ammonia level Code(s): R79.89 - OTHER SPECIFIED ABNORMAL FINDINGS OF BLOOD CHEMISTRY Status : Acute (6) PEA (Pulseless electrical activity) Code(s): I46.9 - CARDIAC ARREST, CAUSE UNSPECIFIED Status: Resolved (7) Upper GI bleed Code(s): K92.2 - GASTROINTESTINAL HEMORRHAGE, UNSPECIFIED Status: Resolved (8) Cirrhosis Code(s): K74.60 - UNSPECIFIED CIRRHOSIS OF LIVER Status: Chronic - Plan Plan: Acute hypoxic respiratory failure 2/2 PEA s/p ROSC - intubated on 11/30 & will continue ventilatory support but wean as tolerated - continue sedation protocol - Will attempt to set up meeting with palliative care & family to discuss goals of care as prognosis remains poor. Aspiration pnuemonitis vs VAP - Started on vanc & cefepime yesterday as patient fevered just over 101F w/ RLL opacity noted on CXR. - Afebrile since. Continue to monitor VS closely. Acute blood loss anemia 2/2 Upper GI bleed - EGD revealed varices but no visualized active bleeding. s/p 1u of PRBCs since admission - Continue protonix but octreotide d/c'd yesterday per GI recs - hgb/vitals remain stable. Will continue to monitor closely & consider advancing diet per GI recs since no active bleeding & Hgb stable for last few days. Respiratory acidosis with metabolic acidosis, resolved Elevated ammonia level -Down to 69 from 75 yesterday. Continue lactulose & rifaximin per GI recs. Coagulopathy, improved -INR 2.6, S/P TXA on presentation but down to 1.4 yesterday. Will continue monitor. Liver mass 2/2 suspected HCC - Mass seen on US w/ AFP>10k - will need MRI for confirmation if able to be extubated Presumptive cirrhosis - RUQ revealed cirrhosis and mass concerning for HCC as noted above - GI on board, appreciate recs Transaminitis - see above HTN - SPBs ranging from 130-150s over last few days. Will consider starting BB therapy with propranolol in setting of known esophageal varices Hx of heavy alcohol abuse -ASE protocol & continue to monitor for withdrawal symptoms Disposition: Will continue ventilatory support as needed with plans to have family meeting with palliative to discuss goals of care as prognosis remains very poor. Code status: FULL CODE IVFs: LR @ 50ml/hr Abx: Cefepime & vanc, day #2 Lines/tubes: ET, NG & reyes day #4, peripheral Diet: NPO Addendum - Attending - Attending Attestation Date/Time: 12/12/19 [id number] I personally evaluated the patient and discussed the management with Dr. Puentes on 12/04/19. I agree with the History, Examination, Assessment and Plan documented above with any addition or exceptions noted below. Minimal responses appear reflexive only. Contact family to discuss plan of care. Prognosis poor.
[2019-12-04] MEDS: Sodium Chloride 0.9% (PF) 10 ML VIAL FS PRN ×2 (09:17→20:00)
[2019-12-04] MEDS: Pantoprazole 40 MG VIAL IVP SCH ×2 (09:17→20:00)
[2019-12-04] MEDS: Rifaximin 550 MG TAB PER TUBE SCH ×2 (09:17→20:00)
--- NOTE | 2019-12-04 09:54 | PRG ---
DATE OF SERVICE: 12/04/2019 SUBJECTIVE: A 54-year-old gentleman with GI bleed, remains intubated in the vent. OBJECTIVE: VITAL SIGNS: His pulse 84, blood pressure 111/60, saturations 92%, respiratory rate 15. CHEST: Decreased breath sounds, no wheezing. CARDIAC: Normal S1, S2. ABDOMEN: No masses. LABORATORY DATA: White count 9000, H and H 8 and 24, and platelet count 50. Lytes are normal. Liver function elevated. ASSESSMENT: Gastrointestinal bleed, respiratory failure, metabolic encephalopathy, alcohol abuse. He may have hepatocellular carcinoma, probably aspiration pneumonia, cirrhosis. He is not weanable. Discussed with family regarding ongoing care. Continue supportive care, empiric antibiotics. Not weanable at this stage. One-half hour of critical care time. Job ID: [id number]
[2019-12-04] MEDS ORDERED: Propranolol 10 MG TAB PER TUBE SCH ×3 (10:30→21:00)
[2019-12-04 12:18] VITALS: BMI 31.8
[2019-12-04] MEDS: Multivitamins, Adult 10 ML, Folic Acid 1 MG, Thiamine HCl 100 MG in Dextrose 5 %-0.45 %... IV SCH (13:17)
--- NOTE | 2019-12-04 14:52 | PRG ---
DATE OF SERVICE: 12/04/2019 SUBJECTIVE: Mr. Sebastian has been off narcotics and sedatives. He is only on propofol. When they weaned that, he gets very combative, but makes no purposeful movements. He does thrash his head quite a bit. Otherwise, medicines will be continued. He is on a banana bag, pantoprazole, rifaximin, and lactulose as well as vancomycin and cefepime. OBJECTIVE: VITAL SIGNS: T-max 100.2 yesterday, presently 98.8; pulse 72; blood pressure 153/96. In's and out's 3154 and 1540. HEENT: He is icteric. He is intubated. NG tube is in place. ABDOMEN: Soft, nontender. EXTREMITIES: Reveal some edema. LABORATORY DATA: White count 9.2, hemoglobin 8.2, platelet count 150,000. The pH is 7.45, pO2 105. Sodium 140, potassium 3.6, BUN and creatinine are 24 and 1.15. Bilirubin is 2.2, stable. AST and ALT are 141 and 95, dropping; alkaline phosphatase 133; albumin 2.4. ASSESSMENT AND RECOMMENDATIONS: 1. Hepatocellular carcinoma with ill-defined mass on ultrasound and AFP of over 10,000. 2. Gastrointestinal bleed, likely varices. No active bleeding now. Octreotide has been weaned. On proton pump inhibitors. 3. Hepatic encephalopathy, on lactulose and Xifaxan. Numbers were slowly dropping. He has only been off narcotics and benzodiazepines for about 24 to 48 hours now. We would avoid these altogether. 4. Aspiration pneumonia, on broad-spectrum antibiotics. We will follow along with you. Job ID: [id number]
--- NOTE | 2019-12-04 16:25 | PDOC.PALCO ---
Palliative Care Consult - Consult Details Requesting Physician: Dr Tapia Reason for Consult: goals of care, advance directives assistance, assistance with communication prognosis/disease, family support, complex decision-making - Pertinent HPI 54 year old male with prior history of heavy alcohol use who called EMS secondary hypertension as pre history. Upon arrival patient became combative, was given ketamine and required protective airway and after arrival to outlying emergency room was intubated with subsequent CPR initiated. Transported to [facility] and admitted for higher level of care. Evaluation has further identified Hepatocellular carcinoma, GI bleed/varices, hepatic encephalopathy, aspiration pneumonia - Pertinent PMH Alcohol related cirrhosis - Social History Smoking Status: Unknown if ever smoked Alcohol Use: heavy Living Situation: independent - Medications MAR Reviewed: Yes - Allergies Allergies/Adverse Reactions: Allergies Allergy/AdvReac Type Severity Reaction Status Date / Time No Known Drug Allergies Allergy Verified 12/01/19 08:07 - Subjective Mechanical ventilation, attempted to turn head when assessing eyes. - ROS Non Response: due to endotracheal tube, due to mental status - Objective Vital Signs: Vital Signs - Most Recent Temp Pulse Resp BP Pulse Ox 98.8 F 67 18 145/101 H 98 12/04/19 12:00 12/04/19 15:00 12/04/19 14:00 12/04/19 15:00 12/04/19 08:00 Palliative Performance Scale: 20 - Physical Exam Constitutional: encephalitic, ill appearing HEENT: EOMI, moist MMs Deviation from normal: mechanical ventilation Cardiovascular: RRR Gastrointestinal: soft, incontinent Deviation from normal: Distended Genitourinary: reyes catheter Musculoskeletal: edema present Skin: no rash, bruising Deviation from normal: icteric Deviation from normal: encephalopathic - Problem List (1) Palliative care encounter Code(s): Z51.5 - ENCOUNTER FOR PALLIATIVE CARE Current Visit: Yes Status: Acute (2) Increased ammonia level Code(s): R79.89 - OTHER SPECIFIED ABNORMAL FINDINGS OF BLOOD CHEMISTRY Current Visit: Yes Status: Acute (3) Metabolic acidosis with respiratory acidosis Code(s): E87.4 - MIXED DISORDER OF ACID-BASE BALANCE Current Visit: Yes Status: Acute (4) Upper GI bleed Code(s): K92.2 - GASTROINTESTINAL HEMORRHAGE, UNSPECIFIED Current Visit: Yes Status: Acute (5) Alcohol abuse Code(s): F10.10 - ALCOHOL ABUSE, UNCOMPLICATED Current Visit: Yes Status: Chronic (6) Cirrhosis Code(s): K74.60 - UNSPECIFIED CIRRHOSIS OF LIVER Current Visit: Yes Status: Chronic (7) Hepatocellular carcinoma Code(s): C22.0 - LIVER CELL CARCINOMA Current Visit: Yes Status: Suspected - Plan/Recommendations Plan: Shelby Quiñonez RN introduced Palliative Care to patient daughters. Reviewed records after assessing patient. Family meeting organized for tomorrow at 1pm. Will utilize Zoom to discuss goal of care for patient in light of poor prognosis/ meaningful recovery with Dr Puentes, daughters, Palliative Care and TAWANDA RN caring for patient. Communicated with Dr Puentes. [45] minutes spent on this encounter with >50% of the time in counseling and coordination of care. Thank you for this very appropriate consult.
[2019-12-04] MEDS: Lactated Ringer's 1,000 ML IV SCH (18:49)
[2019-12-05] MEDS: Cefepime 2 GM in Sodium Chloride 0.9% 100 ML IVPB SCH ×2 (02:25→13:29)
[2019-12-05] MEDS: Vancomycin 1.5 GRAM/300 ML BAG 1.5 GM in Premix Bag 1 BAG IVPB SCH (02:25)
[2019-12-05] MEDS: Propofol 1,000 MG/100 ML VIAL IV PRN ×4 (02:27→23:18)
[2019-12-05 02:42] LABS: Vancomycin, Trough 8.7 ug/mL
--- NOTE | 2019-12-05 06:30 | PDOC.FM ---
- Subjective Subjective: NAEO. Patient slightly more agitated on exam today but remains intubated & sedated with minimal responsiveness to commands and/or painful stimuli. - Objective MAR Reviewed: Yes Vital Signs & Weight: Vital Signs (12 hours) Temp Pulse Resp Pulse Ox 12/05/19 06:00 17 12/05/19 04:22 64 12/05/19 04:00 98.9 F 15 12/05/19 02:00 17 12/05/19 01:46 65 12/05/19 00:00 98.9 F 21 H 12/04/19 22:02 68 12/04/19 22:00 28 H 12/04/19 20:00 99.7 F H 22 H 99 Weight Admit Weight 75.75 kg Weight 81.6 kg Most Recent Monitor Data Heart Rate from ECG 63 NIBP 128/93 NIBP BP-Mean 104 Respiration from ECG 17 SpO2 100 I&O: 12/03/19 12/04/19 12/05/19 06:59 06:59 06:59 Intake Total 3000.6 3154.9 2976 Output Total 1390 1540 1280 Balance 1610.6 1614.9 1696 Result Diagrams: 12/04/19 04:00 12/04/19 04:00 Phys Exam - Physical Examination Constitutional: NAD HEENT: moist MMs Neck: supple coarse rhonchi heard throughout Cardiovascular: RRR, no significant murmur Gastrointestinal: positive bowel sounds moderate distension Musculoskeletal: pulses present, edema present (nonpitting edema in B/L hands) cool extremities Neurological: moves all 4 limbs Skin: no rash, normal turgor Dx/Plan (1) Hepatocellular carcinoma Code(s): C22.0 - LIVER CELL CARCINOMA Status: Suspected (2) Pneumonia Code(s): J18.9 - PNEUMONIA, UNSPECIFIED ORGANISM Status: Acute (3) HTN (hypertension) Code(s): I10 - ESSENTIAL (PRIMARY) HYPERTENSION Status: Chronic (4) Alcohol abuse Code(s): F10.10 - ALCOHOL ABUSE, UNCOMPLICATED Status: Chronic (5) Increased ammonia level Code(s): R79.89 - OTHER SPECIFIED ABNORMAL FINDINGS OF BLOOD CHEMISTRY Status : Acute (6) PEA (Pulseless electrical activity) Code(s): I46.9 - CARDIAC ARREST, CAUSE UNSPECIFIED Status: Resolved (7) Upper GI bleed Code(s): K92.2 - GASTROINTESTINAL HEMORRHAGE, UNSPECIFIED Status: Acute (8) Cirrhosis Code(s): K74.60 - UNSPECIFIED CIRRHOSIS OF LIVER Status: Chronic - Plan Plan: Acute hypoxic respiratory failure w/ 2/2 PEA s/p ROSC - intubated on 11/30 & will continue ventilatory support but wean as tolerated - continue sedation protocol - Will meet with palliative care & family today @ 1300 to discuss goals of care as prognosis remains poor. Will plan to start tube feeds & d/c IVFs pending goals of care decided at meeting. Acute metabolic encephalopathy - Suspect component of anoxic brain injury 2/2 PEA requiring multiple rounds of IV meds to achieve ROSC. Also has metabolic abnormalities such as elevated ammonia levels that could be exacerbating this. Minimal responsiveness still noted on exam. Meeting with family to discuss prognosis & goals of care as now day #5 being intubated. Aspiration pneumonitis vs VAP - Started on vanc & cefepime yesterday as patient fevered just over 101F w/ RLL opacity noted on CXR on 12/02. - Afebrile since. Continue to monitor VS closely. Acute blood loss anemia 2/2 Upper GI bleed - EGD revealed varices but no visualized active bleeding. s/p 1u of PRBCs here since admission - Continue protonix per GI recs - hgb/vitals remain stable. Will continue to monitor closely & consider advancing diet per GI recs & goals of care decided at family meeting since no active bleeding & Hgb stable for last few days. Metabolic acidosis, improving - Bicarb slightly up to 20 yesterday. Lab holiday today. Will consider checking Q3 days pending goals of care meeting with family. Respiratory acidosis, resolved Hyperammonemia -Up to 89 from 75 yesterday. Continue lactulose & rifaximin per GI recs. Coagulopathy, improved -INR 2.6, S/P TXA on presentation but down to 1.4 2 days ago. Will continue monitor. Liver mass 2/2 suspected HCC - Mass seen on US w/ AFP>10k - will need MRI for confirmation if able to be extubated Presumptive cirrhosis - RUQ revealed cirrhosis and mass concerning for HCC as noted above - GI on board, appreciate recs Transaminitis - see above HTN - SPBs ranging from 130-150s over last few days. Will continue propranolol as tolerated. Hx of heavy alcohol abuse -ASE protocol & continue to monitor for withdrawal symptoms Disposition: Will continue ventilatory support as needed with plans to have family meeting with palliative today discuss goals of care as prognosis remains very poor. Code status: FULL CODE IVFs: SL Abx: Cefepime & vanc, day #3 Lines/tubes: ET, NG & reyes day #5, 2 peripheral lines in left arm, 1 in R hand and R AC Diet: NPO
[2019-12-05] MEDS ORDERED: Furosemide 40 MG/4 ML VIAL SLOW IVP SCH (08:45)
[2019-12-05] MEDS: Propranolol 10 MG TAB PER TUBE SCH ×2 (09:40→21:24)
[2019-12-05] MEDS: Pantoprazole 40 MG VIAL IVP SCH ×2 (09:41→21:24)
[2019-12-05] MEDS: Rifaximin 550 MG TAB PER TUBE SCH ×2 (09:41→21:24)
[2019-12-05] MEDS: Sodium Chloride 0.9% (PF) 10 ML VIAL FS PRN (09:41)
--- NOTE | 2019-12-05 09:46 | PRG ---
DATE OF SERVICE: 12/05/2019 SUBJECTIVE: This morning, he remains intubated on the vent. OBJECTIVE: VITAL SIGNS: Pulse 64, blood pressure 143/78, . GENERAL: Jaundiced, unresponsive. CHEST: Decreased breath sounds. No wheezing. CARDIAC: Normal S1 and S2. . ASSESSMENT AND PLAN: Respiratory failure, GI bleed, multiorgan failure, cirrhosis, probably liver cancer. There is to be family conference today. I will probably discontinue the vancomycin today. I am not so sure what we are treating at this stage. There is to be family conference today regarding ongoing care versus comfort care. So far, he is a full code. Pulmonary will follow. One-half hour of critical time. Job ID: [id number]
[2019-12-05] MEDS: Multivitamins, Adult 10 ML, Folic Acid 1 MG, Thiamine HCl 100 MG in Dextrose 5 %-0.45 %... IV SCH (11:55)
--- NOTE | 2019-12-05 14:04 | PDOC.BPN ---
- Brief Progress Note Myself, Palliative care, Ashley, and patient's nurse, TAWANDA, convened for a family meeting with patient's daughters, Zoey and Yesenia, as well as his nephew who translated to all siblings via [employer] telephone conference @ ~1300. Patient's current status and hospital course reviewed with family who understood that the patient was requiring ventilatory support to breath, had liver cancer, and likely aspiration PNA and remains critically ill. Also reminded of the fact that the patient has likely suffered extensive anoxic brain injury due to his episode of PEA and continues to remain minimally responsive to stimuli, suggesting his likelihood of having a meaningful recovery is very low. Family made decision together to make the patient DNR and desires to proceed with compassionate extubation later today or tomorrow. Daughter, Zoey reports she will contact the patient's other daughter, Mare, who will visit the patient prior to extubation with the accompaniment of one additional family member. Zoey reported that she will contact the team again today to notify of when family will be available for extubation later this afternoon.
--- NOTE | 2019-12-05 14:57 | PDOC.PALPN ---
Palliative Progress Note - Subjective mechanically intubated, sedated, minimally responsive to purposeful stimuli during assessment. - Objective Vital Signs: Vital Signs - Most Recent Temp Pulse Resp BP Pulse Ox 97.8 F 70 18 119/71 100 12/05/19 12:00 12/05/19 13:27 12/05/19 14:00 12/05/19 13:27 12/05/19 08:00 - Physical Exam Constitutional: encephalitic, ill appearing HEENT: moist MMs Deviation from normal: mechanical ventilation Cardiovascular: RRR Gastrointestinal: incontinent Deviation from normal: distended Genitourinary: reyes catheter Musculoskeletal: pulses present, edema present, diffuse muscle atrophy Neurology: moves all 4 limbs Deviation from normal: sedated Skin: cap refill <2 seconds Deviation from normal: icteric Deviation from normal: encephalopathic - Assessment (1) Palliative care encounter Code(s): Z51.5 - ENCOUNTER FOR PALLIATIVE CARE Current Visit: Yes Status: Acute (2) Increased ammonia level Code(s): R79.89 - OTHER SPECIFIED ABNORMAL FINDINGS OF BLOOD CHEMISTRY Current Visit: Yes Status: Acute (3) Metabolic acidosis with respiratory acidosis Code(s): E87.4 - MIXED DISORDER OF ACID-BASE BALANCE Current Visit: Yes Status: Acute (4) Upper GI bleed Code(s): K92.2 - GASTROINTESTINAL HEMORRHAGE, UNSPECIFIED Current Visit: Yes Status: Acute (5) Alcohol abuse Code(s): F10.10 - ALCOHOL ABUSE, UNCOMPLICATED Current Visit: Yes Status: Chronic (6) Cirrhosis Code(s): K74.60 - UNSPECIFIED CIRRHOSIS OF LIVER Current Visit: Yes Status: Chronic (7) Hepatocellular carcinoma Code(s): C22.0 - LIVER CELL CARCINOMA Current Visit: Yes Status: Suspected - Plan Plan: Assessed and coordinated family meeting. After 1pm Dr Puentes discussed with family of Mr Sebastian including daughters Renata Greer, and his siblings Mr Sebastian current health condition, including dependence on mechanical ventilation for respiratory support, and poor opportunity of meaningful recovery. Family discussed options, but had arrived at a decision prior to coordinated meeting. They state Mr Sebastian would not want to "live like this" and elected to transition to DNAR and compassionately extubate. Emotional support and therapeutic listening. It was communicated that patient daughter Mare and one of his siblings will be here this afternoon (12/05/2019) to compassionately extubated. DNAR placed on chart, TAWANDA Charlton, and spiritual care notified. [60] minutes spent on this encounter with >50% of the time in counseling and coordination of care. - ROS Non Response: due to endotracheal tube, due to mental status
[2019-12-05] MEDS ORDERED: Vancomycin 1 GM in Premix Bag 1 BAG IVPB SCH (15:00)
[2019-12-06] MEDS: Cefepime 2 GM in Sodium Chloride 0.9% 100 ML IVPB SCH (01:41)
--- NOTE | 2019-12-06 05:53 | PRG ---
DATE OF SERVICE: 12/05/2019 REASON FOR CONSULTATION: Hematemesis, cirrhosis of the liver, hepatic encephalopathy. SUBJECTIVE: Despite multiple attempts to wean the patient off sedatives and narcotics, he did not display any purposeful movements. Currently, today, he was on minimal sedative medication of the propofol and again only responded to noxious stimuli at the feet, but nowhere on the body. Otherwise, per nursing staff, he has not exhibited any increased agitation and he has not had any further episodes of hematemesis, melena, nor has he had any hematochezia. OBJECTIVE: VITAL SIGNS: Temperature 97.6, pulse 66, blood pressure 133/83, respiratory rate 17, saturating 100% on mechanical ventilation. GENERAL: The patient was lying in bed, in no acute distress, intubated, and sedated. CARDIOVASCULAR: Regular rate and rhythm. RESPIRATORY: Coarse breath sounds auscultated in all lung melendrez consistent with mechanical ventilation. ABDOMEN: Normoactive bowel sounds. Mildly tense to palpation. Moderate abdominal distention. No grimacing or pain to palpation. Shifting dullness positive. EXTREMITIES: No cyanosis or clubbing. LABORATORY DATA: No current studies are available for review except for an ammonia of 86 this morning. IMAGING DATA: No current studies are available for review. ASSESSMENT AND PLAN: The patient is a 54-year-old male with past medical history of hypertension and heavy alcohol abuse, presenting with hematemesis with upper endoscopy showing the presence of esophageal varices consistent with portal hypertension/cirrhosis. Hematemesis: The patient initially presented with episode of hematemesis in addition to associated that ultimately required intubation and CPR with return of spontaneous circulation. He subsequently underwent upper endoscopy on December 01, 2019, with the findings of distal esophageal varices consistent with portal hypertension and probable cirrhosis. They did display a red aly sign considered a high-risk stigmata bleeding and underwent band ligation x4. Since intervention, he has not had any further episodes of hematemesis nor has any had melenic type stools consistent with active GI bleeding. Recommendations; 1. Continue to trend his hemoglobin and hematocrit and transfuse as necessary to maintain hemoglobin and hematocrit of 7/21. 2. Continue to monitor clinically for signs of active GI bleeding. 3. We will continue the patient on PPI 40 mg IV b.i.d. until terminally extubated. Altered mental status/encephalopathy: The patient initially presented with and encephalopathy associated with this particular condition. However with his active GI bleeding, he did experience hypotension and subsequently had pulseless electrical activity that required CPR, for which he did obtain return of spontaneous circulation. However, during the course of this admission, he has not had any significant recovery with no purposeful movements observed by hospital staff thus far. Upon conferring with the patient's family and given his lack of improvement at this time, the decision to compassionately extubate was made with this being performed within the next 12 hours. Recommendations; 1. We would defer to Primary Team about possible terminal/compassionate extubation. Aspiration pneumonia: The patient is presenting with probable aspiration pneumonia as evidenced on imaging and elevated white blood cell count on admission. As part of comfort care measures, I would continue the antibiotics until terminally extubated. Recommendations; 1. We would continue antibiotics as part of comfort care measures until compassionate extubation. Given the patient's overall poor prognosis, compassionate extubation is a reasonable option at this time. We will sign off. Please call with any additional questions. Job ID: [id number]
--- NOTE | 2019-12-06 07:22 | PDOC.FM ---
- Subjective Subjective: NAEO. Patient remains intubated but making eye contact with sedation off and follows commands in British per nursing. Nodded yes when asked if he could hear me. - Objective MAR Reviewed: Yes Vital Signs & Weight: Vital Signs (12 hours) Temp Pulse Resp BP Pulse Ox 12/06/19 07:15 67 109/68 12/06/19 04:00 98.4 F 18 12/06/19 03:50 69 12/06/19 02:00 20 12/06/19 01:54 70 12/06/19 00:08 70 113/70 12/06/19 00:00 17 12/05/19 22:00 18 12/05/19 21:37 71 12/05/19 20:00 98.4 F 19 99 Weight Admit Weight 75.75 kg Weight 82.5 kg Most Recent Monitor Data Heart Rate from ECG 65 NIBP 85/49 NIBP BP-Mean 61 Respiration from ECG 13 SpO2 98 I&O: 12/05/19 12/06/19 12/07/19 06:59 06:59 06:59 Intake Total 2976 1343 Output Total 1280 1730 Balance 1696 -387 Result Diagrams: 12/04/19 04:00 12/04/19 04:00 Phys Exam - Physical Examination Constitutional: NAD HEENT: moist MMs Neck: supple, full ROM coarse rhonchi heard throughout Cardiovascular: RRR, no significant murmur Gastrointestinal: positive bowel sounds moderate distension mild, non-pitting edema in all extremities Neurological: moves all 4 limbs (no purposeful movements noted) Skin: no rash Dx/Plan (1) Hepatocellular carcinoma Code(s): C22.0 - LIVER CELL CARCINOMA Status: Suspected (2) Pneumonia Code(s): J18.9 - PNEUMONIA, UNSPECIFIED ORGANISM Status: Acute (3) HTN (hypertension) Code(s): I10 - ESSENTIAL (PRIMARY) HYPERTENSION Status: Chronic (4) Alcohol abuse Code(s): F10.10 - ALCOHOL ABUSE, UNCOMPLICATED Status: Chronic (5) Increased ammonia level Code(s): R79.89 - OTHER SPECIFIED ABNORMAL FINDINGS OF BLOOD CHEMISTRY Status : Acute (6) PEA (Pulseless electrical activity) Code(s): I46.9 - CARDIAC ARREST, CAUSE UNSPECIFIED Status: Resolved (7) Upper GI bleed Code(s): K92.2 - GASTROINTESTINAL HEMORRHAGE, UNSPECIFIED Status: Resolved (8) Cirrhosis Code(s): K74.60 - UNSPECIFIED CIRRHOSIS OF LIVER Status: Chronic - Plan Plan: Acute hypoxic respiratory failure w/ 2/2 PEA s/p ROSC - Patient remains intubated but more alert this AM off of sedation. - Plan to extubate at 10:30 per family's wishes as prognosis still remains poor despite changes in mentation. Acute metabolic encephalopathy, improved - Suspect component of anoxic brain injury 2/2 PEA requiring multiple rounds of IV meds to achieve ROSC. Also has metabolic abnormalities such as elevated ammonia levels that could be exacerbating this. - However, on exam this AM following commands in British & making eye contact. Aspiration pneumonitis vs VAP - Patient fevered just over 101F w/ RLL opacity noted on CXR on 12/02. Continue IV cefepime. Acute blood loss anemia 2/2 Upper GI bleed, stable - EGD revealed varices but no visualized active bleeding. s/p 1u of PRBCs here since admission - hgb/vitals remain stable - Continue IV protonix while NPO Metabolic acidosis, improving - Bicarb slightly up to 20 2 days ago. Respiratory acidosis, resolved Hyperammonemia -Up to 89 yesterday. Continue lactulose & rifaximin per GI recs for now. Coagulopathy, improved -INR 2.6, S/P TXA on presentation but down to 1.4 ~3 days ago. Will continue monitor. HCC - Mass seen on US w/ AFP>10k, diagnostic for HCC per GI. Will need MRI for confirmation pending clinical course. Presumptive cirrhosis - RUQ revealed cirrhosis and mass concerning for HCC as noted above - GI on board, appreciate recs Transaminitis - see above HTN - SPBs ranging from 130-150s over last few days. Will continue propranolol as tolerated. Hx of heavy alcohol abuse -ASE protocol & continue to monitor for withdrawal symptoms Disposition: Will continue ventilatory support until family arrives & will update on acute changes in neurologic status before compassionate extubation. Code status: DNAR IVFs: SL Abx: Cefepime day #4 Lines/tubes: ET, NG & reyes day #6, 2 peripheral lines in left arm, 1 in R hand and R AC Diet: NPO
[2019-12-06] MEDS: Rifaximin 550 MG TAB PER TUBE SCH (09:29)
[2019-12-06] MEDS: Pantoprazole 40 MG VIAL IVP SCH ×2 (09:29→20:44)
--- NOTE | 2019-12-06 09:54 | PRG ---
DATE OF SERVICE: 12/06/2019 SUBJECTIVE: This morning, he remains still encephalopathic and may be slightly more arousable. OBJECTIVE: VITAL SIGNS: Temperature 98, saturations 100%, blood pressure 136/71, and respiratory rate 18. CHEST: No wheezing or crackles. CARDIAC: Normal S1 and S2. No gallops. ABDOMEN: No mass. IMPRESSION: Respiratory failure, multiorgan failure, gastrointestinal bleed, cirrhosis, hepatitis C, probably hepatoma. At this stage, I would recommend extubation, comfort care. No lab was ordered today. We will discuss with family as they arrive. Job ID: [id number]
[2019-12-06] MEDS: Propofol 1,000 MG/100 ML VIAL IV PRN (09:56)
[2019-12-06] MEDS: Propranolol 10 MG TAB PER TUBE SCH (10:13)
--- NOTE | 2019-12-06 13:43 | EKG ---
Test Reason : Blood Pressure : / mmHG Vent. Rate : 111 BPM Atrial Rate : 111 BPM P-R Int : 140 ms QRS Dur : 102 ms QT Int : 396 ms P-R-T Axes : 049 -19 087 degrees QTc Int : 538 ms Poor data quality, interpretation may be adversely affected Sinus tachycardia Otherwise normal ECG Confirmed by MARLEEN GALDAMEZ ([id number]), communications editor WELLINGTON GERMAIN ([id number] on 12/06/2019 1:42:43 PM Referred By: Confirmed By:MARLEEN GALDAMEZ
[2019-12-06] MEDS: Multivitamins, Adult 10 ML, Folic Acid 1 MG, Thiamine HCl 100 MG in Dextrose 5 %-0.45 %... IV SCH (13:47)
[2019-12-07] MEDS ORDERED: Scopolamine 1.5 mg/72 hour Patch TD PRN (01:37)
[2019-12-07] MEDS ORDERED: Haloperidol Lactate 5 MG/ML VIAL SLOW IVP PRN (01:37)
[2019-12-07] MEDS: Pantoprazole 40 MG VIAL IVP SCH (07:59)
--- NOTE | 2019-12-07 10:26 | PRG ---
DATE OF SERVICE: SUBJECTIVE: He was extubated, comfort care was given. He is probably going to go on to hospice today. Upon arrival in the room, he was still breathing without any respiratory distress, still encephalopathic. OBJECTIVE: VITAL SIGNS: Pulse of 70, respirations 20, blood pressure 130/80, and sats 94%. CHEST: Rhonchi. CARDIAC: Normal S1, S2. IMPRESSION: Cirrhosis, hepatoma, and respiratory failure. Agree with comfort care. Pulmonary will follow at a distance. Job ID: [id number]
--- NOTE | 2019-12-07 12:53 | PDOC.FM ---
- Subjective Subjective: NAEO. Patient transferred from CCU as he remained stable off of ventilatory support. Resting on exam and not really arousable. - Objective MAR Reviewed: Yes Vital Signs & Weight: Vital Signs (12 hours) Temp Pulse Resp BP Pulse Ox 12/07/19 12:00 16 12/07/19 08:00 97.3 F L 87 16 134/61 99 12/07/19 04:00 97.2 F L 82 20 147/67 H 96 12/07/19 01:30 98.1 F 81 18 145/92 H 100 Weight Admit Weight 75.75 kg Weight 76.232 kg Most Recent Monitor Data Heart Rate from ECG 82 NIBP 139/85 NIBP BP-Mean 103 Respiration from ECG 15 SpO2 97 I&O: 12/06/19 12/07/19 12/08/19 06:59 06:59 06:59 Intake Total 1629 503.4 Output Total 2430 659 Balance -801 -155.6 Result Diagrams: 12/04/19 04:00 12/04/19 04:00 Phys Exam - Physical Examination Constitutional: NAD HEENT: moist MMs Neck: supple, full ROM Respiratory: no wheezing Cardiovascular: RRR, no significant murmur Gastrointestinal: positive bowel sounds Musculoskeletal: no edema Neurological: moves all 4 limbs Deviation from normal: not arousable to verbal stimuli with minimal responsiveness to painful stimuli Skin: no rash Dx/Plan (1) Hepatocellular carcinoma Code(s): C22.0 - LIVER CELL CARCINOMA Status: Suspected (2) Pneumonia Code(s): J18.9 - PNEUMONIA, UNSPECIFIED ORGANISM Status: Acute (3) HTN (hypertension) Code(s): I10 - ESSENTIAL (PRIMARY) HYPERTENSION Status: Chronic (4) Alcohol abuse Code(s): F10.10 - ALCOHOL ABUSE, UNCOMPLICATED Status: Chronic (5) Increased ammonia level Code(s): R79.89 - OTHER SPECIFIED ABNORMAL FINDINGS OF BLOOD CHEMISTRY Status : Acute (6) PEA (Pulseless electrical activity) Code(s): I46.9 - CARDIAC ARREST, CAUSE UNSPECIFIED Status: Resolved (7) Upper GI bleed Code(s): K92.2 - GASTROINTESTINAL HEMORRHAGE, UNSPECIFIED Status: Resolved (8) Cirrhosis Code(s): K74.60 - UNSPECIFIED CIRRHOSIS OF LIVER Status: Chronic - Plan Plan: Acute hypoxic respiratory failure w/ 2/2 PEA s/p ROSC, resolved - Patient extubated yesterday & been stable off of ventilatory support since. Acute metabolic encephalopathy - Suspect component of anoxic brain injury 2/2 PEA requiring multiple rounds of IV meds to achieve ROSC. Also has metabolic abnormalities such as elevated ammonia levels & HCC that could be exacerbating this. - Less responsive on exam this AM compared to yesterday & remains off of all sedation. Only PRN morphine & haldol for pain, air hunger, &/or agitation. Aspiration pneumonitis vs VAP - Patient fevered just over 101F w/ RLL opacity noted on CXR on 12/02. IV cefepime stopped as patient now only on CC measures only. Acute blood loss anemia 2/2 Upper GI bleed, stable - EGD revealed varices but no visualized active bleeding. s/p 1u of PRBCs here since admission - hgb/vitals remain stable - Continue IV protonix while NPO Hyperammonemia -Up to 89 2 days ago but will no longer trend 2/2 hospice placement. Coagulopathy, improved -INR 2.6, S/P TXA on presentation but down to 1.4 ~4 days ago. No more labs 2/2 CC measures only as desires hospice. HCC - Mass seen on US w/ AFP>10k, diagnostic for HCC per GI. Plan to d/c home w/ hospice. Presumptive cirrhosis - RUQ revealed cirrhosis and mass concerning for HCC as noted above - GI signed off. Will continue CC measures only while inpatient pending hospice placement. Transaminitis - see above HTN - SBPs ranging from 130-140s over last few days. Will tx PRN. Hx of heavy alcohol abuse -ASE protocol & continue to monitor for withdrawal symptoms. Metabolic acidosis - Bicarb slightly up to 20 three days ago. No further labs to monitor as patient pending home with hospice placement. Respiratory acidosis, resolved Disposition: Will likely d/c home with hospice today. Code status: DNAR IVFs: SL Abx: None Lines/tubes: LUE & RUE perihperal IVs, day #7 Diet: NPO, ice chips/water allowed
[2019-12-07 13:03] VITALS: BP 142/71; TEMP 98.6
--- NOTE | 2019-12-07 18:53 | DIS ---
DATE OF ADMISSION: 12/01/2019 DATE OF DISCHARGE: 12/07/2019 RESIDENT: Jane Puentes MD ADMITTING ATTENDING: Cameron Lopez MD DISCHARGE ATTENDING: Latrell Comer MD. CONSULTS: 1. Gastroenterology, Dr. Duane Tapia. 2. Pulmonology, Dr. Ortiz Mendez MD. 3. Palliative care, Giovanna Simpson. PROCEDURES: 1. Brain CT on 12/01/2019, which showed no significant abnormality. 2. Abdominal ultrasound on 12/01/2019, notable for cirrhotic morphology of the liver and a circumscribed peripherally located mass in the right hepatic lobe, worrisome for neoplastic process, and a small amount of ascites in the right upper quadrant. 3. Esophagogastroduodenoscopy with banding of grade 3 esophageal varices x4 with no active bleeding or thrombin clot seen. Portal hypertensive gastropathy also noted in the stomach. 4. Chest x-ray on 12/03/2019, notable for hyperinflated lungs with medial right lung base parenchymal opacity. PRIMARY DIAGNOSES: 1. Acute hypoxic respiratory failure secondary to metabolic derangement, acute blood loss anemia, and presumptive iatrogenic medication overdose. 2. Pulseless electrical activity with return of spontaneous circulation, most likely secondary to #1. 3. Acute blood loss anemia secondary to upper gastrointestinal bleed from esophageal varices. 4. 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 5. VAP SECONDARY DIAGNOSES: 1. Alcohol abuse. 2. Hypertension. DISCHARGE MEDICATIONS: 1. Haldol 5 mg slow IV push q.6 h. p.r.n. 2. Ativan 2 mg slow IV push q.1 h. p.r.n. 3. Zofran 4 mg IV push q.6 h. p.r.n. 4. Scopolamine 1.5 mg patch transdermal every 3 days as needed. DISCONTINUED MEDICATIONS: Advil 400 mg p.o. q.4 h. p.r.n. HOSPITAL COURSE: The patient is a 54-year-old gentleman with a past medical history notable for hypertension and heavy alcohol abuse who presented via EMS to [facility] after being called to the patient's home reportedly for hypertension. Per the ER physician's report, EMS arrived and found the patient' s blood pressure to be significantly elevated, but noted he was very combative ( possibly 2/2 EtOH), so he was therefore given an unknown amount of ketamine, which led to development of respiratory arrest requiring placement of a Rodney airway. Afterwards, blood was noted to be coming from his airway and he was not able to be oxygenated appropriately. The patient was then brought to the [facility] where he was intubated. In [place], the patient went into cardiac arrest with PEA and required multiple rounds of epi and CPR before obtaining ROSC. On arrival at [facility], his hemoglobin was noted to be 7, but dropped to 5.5 approximately 1 hour later. He received 5 L of normal saline & 1U of PRBCs before being shipped to [facility] for further management. In [facility], the patient received another unit of blood, TXA, lactulose, IV Protonix, and Rocephin. Part of his workup included a brain CT and abdominal ultrasound as well which were notable for cirrhosis of the liver with a liver mass suspicious for neoplasm and ascites. After consulting GI for further recs & management due to his bleed, the patient was admitted to the CCU overnight with plans to undergo endoscopic evaluation the following morning. Regarding the patient's upper GI bleed, after receiving TXA and blood & being monitored in the CCU overnight. GI, Dr. Duane Tapia, took the patient down for an upper endoscopy evaluation the following morning during which 3 esophageal varices that were not actively bleeding at that time were identified and banded. The patient's hemoglobin levels remained stable and no further bleeding was noted for the remainder of his hospital stay. He was started on IV Protonix b.i.d., which was discontinued upon his discharge as he was discharged home on hospice as noted above. Regarding his acute hypoxic respiratory failure, the patient remained intubated requiring ventilatory support for approximately 6 days after which time he was compassionately extubated after an extensive group meeting with his family. The patient tolerated extubation well and was transferred to the floor later on the day prior to discharge where he did not require any respiratory support for the remainder of his hospital stay. The patient was eventually discharged home with home hospice service per the wishes of his family. Regarding his cirrhosis secondary to hepatocellular carcinoma, as stated above, his abdominal ultrasound did note a mass on his liver and AFP levels were obtained for confirmation of hepatocellular carcinoma and were significantly elevated at 10, 148, confirming this diagnosis per gastroenterology. In addition, the patient was started on rifaximin and lactulose for his cirrhosis and hyperammonemia associated with this, both of which were discontinued by the date of discharge as he was sent home on hospice with comfort care measures only. Regarding his VAP, the patient fevered on hospital day #2 and a RLL infiltrate was noted on CXR which was determined to most likely for the source. He was started on BS abx including vancomyin & cefepime which was eventually de- escalated & discontinued as the patient was extubated & discharged home on hospice. DISPOSITION: Guarded. DISCHARGE INSTRUCTIONS: 1. Location: Home with hospice services. 2. Diet: Regular diet as tolerated. 3. Activity: Activity as tolerated, no restrictions. 4. Followup: The patient is to follow up with home hospice services upon discharge. Job ID: [id number] [id number]
== END 2019-12-07 18:22 | disposition hospice, home (50) | DRG 207 ==
LOC: ERS 02:59 → CCU 03:12 → ONC 12-07 01:34
PROVIDERS: ADMIT Family Medicine; ATTEND Family Medicine
PROC: 5A1955Z Respiratory Ventilation, Greater than 96 Consecutive Hours (ICD-10-PCS; principal; 2019-12-01)
PROC: 06L38CZ Occlusion of Esophageal Vein with Extraluminal Device, Via Natural or Artificial Opening Endoscopic (ICD-10-PCS; 2019-12-01)
PROC: 30233N1 Transfusion of Nonautologous Red Blood Cells into Peripheral Vein, Percutaneous Approach (ICD-10-PCS; 2019-12-01)
DX: J96.01 Acute respiratory failure with hypoxia (principal); G93.41 Metabolic encephalopathy; I85.11 Secondary esophageal varices with bleeding; Z66 Do not resuscitate; Z51.5 Encounter for palliative care; J95.851 Ventilator associated pneumonia; R40.2312 Coma scale, best motor response, none, at arrival to emergency department; R40.2112 Coma scale, eyes open, never, at arrival to emergency department; R40.2212 Coma scale, best verbal response, none, at arrival to emergency department; D62 Acute posthemorrhagic anemia; E87.2 Acidosis; C22.0 Liver cell carcinoma; F10.188 Alcohol abuse with other alcohol-induced disorder; D68.4 Acquired coagulation factor deficiency; K76.6 Portal hypertension; T41.291A Poisoning by other general anesthetics, accidental (unintentional), initial encounter; K72.90 Hepatic failure, unspecified without coma; K70.30 Alcoholic cirrhosis of liver without ascites; K31.89 Other diseases of stomach and duodenum; Z86.74 Personal history of sudden cardiac arrest
CPT/HCPCS: 36415; 51702; 70450; 71045; 76705; 80053; 80202; 81001; 82105; 82140; 82805; 83605; 83690; 83735; 83880; 84100; 84145; 85025; 85610; 85730; 86706; 86803; 86850; 86900; 86901; 87040; 87340; 93005; 94002; 94003; 96365; 96367; 96375; C9113; J0295; J0692; J0696; J1940; J2060; J2250; J2270; J2354; J2704; J3010; J3370; J3411; J3490; J7042; J7050; P9016